=== PATIENT | female | born 1935 | race Caucasian/White ===

== ENCOUNTER 2017-03-04 08:53 | Inpatient (IN) | payer MEDICARE, OTHER, MEDICAID ==
--- NOTE | 2017-03-04 10:14 | RAD ---
CHEST ONE VIEW: History: Chest pain. Weakness. Comparison: 06-14-16 FINDINGS: Cardiac silhouette is magnified by projection. Right hemidiaphragm remains elevated. Pulmonary vascu lature is unremarkable. Patient is rotated rightward. There is no lobar consolidation or evidence of pneumothorax. human resources designate leads overlie the chest. IMPRESSION: 1. Chronic type findings are stable. No active cardiopulmonary abnormalities are demonstrated. POS: [facility]
[2017-03-04 10:36] LABS: #Basophils 0.1 thou/uL (0.0-0.2); #Eosinphils 0.2 thou/uL (0.0-0.7); #Lymphocytes 1.6 thou/uL (1.20-3.40); #Monocytes 1.3 thou/uL (0.11-0.59); #Neutrophils 13.3 thou/uL (1.40-6.50); %Basophils 0.8 % (0.0-1.0); %Lymphocytes 9.8 % (21.0-51.0); %Monocytes 7.7 % (0.0-10.0); Hematocrit 40.5 % (36.0-47.0); Mean Platelet Volume 5.8 fL (7.4-10.4); Red Blood Cell (RBC) Count 4.09 mill/uL (4.20-5.40); White Blood Cell (WBC) Count 16.5 thou/uL (4.8-10.8)
[2017-03-04 10:51] LABS: Lactic Acid - Sepsis 0.8 mmol/L (0.5-2.2)
[2017-03-04 10:58] LABS: ALT (SGPT) 11 U/L (8-55); AST (SGOT) 17 U/L (5-34); Alkaline Phosphatase 46 U/L (40-150); Anion Gap 12 mmol/L (10-20); BUN (Urea Nitrogen) 18 mg/dL (9.8-20.1); Bilirubin, Total 0.4 mg/dL (0.2-1.2); Calc. Creatinine Clearance 0 mL/min (70-130); Calcium 9.1 mg/dL (7.8-10.44); Carbon Dioxide 27 mmol/L (23-31); Chloride 104 mmol/L (98-107); Estimated GFR-MDRD Greater than 90; Globulin 2.7 g/dL (2.4-3.5); Protein, Total 6.6 g/dL (6.0-8.3)
[2017-03-04] MEDS ORDERED: Ondansetron HCl/PF 4 MG/2 ML Vial ONE ×2 (11:22→14:13)
[2017-03-04 11:39] LABS: Bilirubin Negative (Negative); Blood, Urine Moderate (Negative); Glucose, Urine (Dipstick) Negative (Negative); Ketone, Urine Negative (Negative); Nitrite Positive (Negative); Protein, Urine (Dipstick) 30 mg/dL (Neg-Trace)
[2017-03-04 11:41] LABS: Bacteria/HPF 4+ HPF (None Seen); Hyaline Casts/LPF 7-10 HYALINE CAST LPF (0-3 Hyaline)
[2017-03-04 11:57] LABS: Yeast-All Forms None Seen HPF (None Seen)
[2017-03-04] MEDS ORDERED: Sodium Chloride 0.9% 100 ML ONE (12:11)
[2017-03-04] MEDS ORDERED: cefTRIAXone\\ROCEPHIN 1 GM VIAL ONE (12:11)
[2017-03-04 12:14] LABS: Oxyhemoglobin 90.9 % (94.0-97.0); Sodium 140 mmol/L (135-148)
[2017-03-04 12:15] LABS: Mode RA; Modified Allen's Test POSITIVE; Vent NO
[2017-03-04] MEDS ORDERED: Milk Of Magnesia 30 ML UDCUP PO PRN (14:23)
[2017-03-04 14:38] LABS: Sodium 142 mmol/L (135-148)
[2017-03-04 14:40] LABS: Mode 2L/M NASAL CANNULA; Modified Allen's Test POSITIVE
--- NOTE | 2017-03-04 14:55 | PDOC.EVN ---
Event Note - Event Note Event Note: H&P: [id number] #Acute B/L Pyelonephritis * with associated N/V/bilateral flank pain on admission * IVFs * prn analgesics/antiemetics * urine cx * blood cxs * Levaquin * check labs in AM Hypercarbic Respiratroy Failure * Bipap * Pulm consult * ICU monitoring RA with functional Quadriplegia * consult PT/OT HTN * monitor BP and HR closely Hypothyroidism * continue replacement therapy Admit to ICU
[2017-03-04] MEDS ORDERED: Heparin 1,000 UNITS/ML VIAL ONE (15:19)
--- NOTE | 2017-03-04 20:08 | HP ---
DATE OF ADMISSION: 03/04/2017 at 2:50 p.m. CHIEF COMPLAINT: Nausea and vomiting. HISTORY OF PRESENT ILLNESS: This is a very pleasant 81-year-old female who reported that she had na usea and vomiting at home, there was no blood in the vomitus. This was associated with dysuria and bilateral flank pain. She reports that this feels very similar to prior pyelonephritis infections. She denied any subjective fevers or chills. She also denies any chest pain or shortness of breath. It was noted in the emergency room that she was somnolent, but easily arousable and therefore an ABG was done and revealed hypercarbic respiratory acidosis. PAST MEDICAL HISTORY: 1. Dysthymic disorder. 2. Rheumatoid arthritis with multiple joint deformities. 3. History of nephrolithiasis. 4. Vitamin D deficiency. 5. Hypothyroidism. 6. Hypertension. 7. Functional quadriplegia. 8. Recurrent urinary tract infections. PAST SURGICAL HISTORY: 1. Multiple joint replacements. 2. Cholecystectomy. FAMILY HISTORY: No history of pulmonary disease in the family per the patient. SOCIAL HISTORY: The patient denies any tobacco, alcohol, or illicit drug use. ALLERGIES, MEDICATIONS, LABS, AND IMAGING: Reviewed. Please refer to chart for details. PHYSICAL EXAMINATION: VITAL SIGNS: Reviewed, please refer to chart for details. GENERAL: The patient was lying comfortably in bed when I entered the room in no acute distress. Sh e was awake and alert. HEENT: Normocephalic, atraumatic. NECK: Supple, no rigidity, no masses. LYMPH NODES: No cervical or supraclavicular lymphadenopathy. CARDIOVASCULAR: S1 and S2 are audible. Regular rate and rhythm. LUNGS: Clear to auscultation bilaterally with no wheezes, rales, or rhonchi. Symmetric chest expan sophie. ABDOMEN: Soft, nontender, positive bowel sounds. No guarding, rebound, or rigidity. GENITOURINARY: Mild CVA tenderness bilaterally. No suprapubic tenderness. MUSCULOSKELETAL: No calf tenderness bilaterally. EXTREMITIES: No clubbing, cyanosis, or edema of the extremities. She does have deformed wrist and ankles due to her rheumatoid arthritis. PSYCHIATRIC: Appropriate, cooperative. NEUROLOGIC: Alert and oriented x3. Answering questions appropriately with judgment intact. SKIN: Warm and dry with moist mucous membranes. ASSESSMENT AND PLAN: This is an 81-year-old female presenting with nausea, vomiting, and bilateral flank pain. 1. Acute bilateral pyelonephritis. We will start IV Levaquin. Start p.r.n. analgesics and antieme tics. Start IV fluids. Check urine and blood cultures. Check labs in the morning. 2. Hypercarbic acidosis with acute respiratory failure. We will order BiPAP and transferred to ICU . We will consult Pulmonology. The patient does not have any infiltrate on chest x-ray and therefo re pneumonia has been ruled out. It is possible that she may have sleep apnea, but I will defer wor kup to pulmonology. Monitor pulse ox closely. Check labs in the morning. 3. Admit to ICU.
[2017-03-04] MEDS: Sodium Chloride 0.9% 1,000 ML IV SCH (21:05)
[2017-03-04] MEDS: Metoprolol Tartrate 25 MG TAB PO SCH (22:17)
[2017-03-05] MEDS: Sodium Chloride 0.9% 1,000 ML IV SCH ×2 (04:44→10:57)
[2017-03-05 04:56] LABS: #Lymphocytes 1.3 thou/uL (1.20-3.40); #Monocytes 1.1 thou/uL (0.11-0.59); #Neutrophils 10.1 thou/uL (1.40-6.50); %Basophils 0.1 % (0.0-1.0); %Eosinophils 0.4 % (0.0-10.0); %Lymphocytes 10.2 % (21.0-51.0); %Monocytes 8.4 % (0.0-10.0); Hematocrit 36.8 % (36.0-47.0); Mean Platelet Volume 6.1 fL (7.4-10.4); Red Blood Cell (RBC) Count 3.68 mill/uL (4.20-5.40); White Blood Cell (WBC) Count 12.5 thou/uL (4.8-10.8)
[2017-03-05 05:21] LABS: Anion Gap 9 mmol/L (10-20); BUN (Urea Nitrogen) 12 mg/dL (9.8-20.1); Calc. Creatinine Clearance 61 mL/min (70-130); Calcium 8.5 mg/dL (7.8-10.44); Carbon Dioxide 29 mmol/L (23-31); Chloride 105 mmol/L (98-107); Estimated GFR-MDRD Greater than 90; Magnesium 1.8 mg/dL (1.6-2.6)
[2017-03-05] MEDS ORDERED: HYDROcodone/Acetaminophen 5/325 mg Tablet PO SCH (05:30)
[2017-03-05] MEDS: Docusate 100 MG CAP PO SCH (08:45)
[2017-03-05] MEDS: predniSONE 5 MG TAB PO SCH (08:45)
[2017-03-05] MEDS: Ferrous Sulfate 325 MG TAB PO SCH (08:45)
[2017-03-05] MEDS: Metoprolol Tartrate 25 MG TAB PO SCH ×2 (08:45→20:31)
[2017-03-05] MEDS: Polyethylene Glycol 3350 17 GM Packet PO SCH (08:48)
[2017-03-05] MEDS ORDERED: ALPRAZolam 0.25 MG TAB PO SCH (10:45)
[2017-03-05] MEDS: cefTRIAXone\\ROCEPHIN 1 GM in Sodium Chloride 0.9% 100 ML IVPB SCH (10:56)
--- NOTE | 2017-03-05 13:26 | CON ---
DATE OF CONSULTATION: 03/05/2017 This is an 81-year-old female admitted yesterday afternoon with nausea and vomiting. She was also c omplaining of dysuria. She says she feels much better at this point in time. PAST MEDICAL HISTORY: 1. Remarkable for 36 years of rheumatoid arthritis. She says she has had just about every joint in her body replaced. 2. History of nephrolithiasis. 3. History of hypothyroidism. 4. History of hypertension. 5. History of recurrent urinary tract infections. 6. History of cholecystectomy. FAMILY HISTORY: Negative for lung disease at an early age. REVIEW OF SYSTEMS: Otherwise negative. She says she is feeling better. She denies joint discomfor t out of the ordinary. PHYSICAL EXAMINATION: VITAL SIGNS: Temperature 99.6, heart rate 72, respiratory rate is 18, oximetry is 100% on 2 liters, blood pressure 106/46. LUNGS: Clear. HEART: Regular rhythm. ABDOMEN: Soft. EXTREMITIES: Extremities without edema. She has severe rheumatoid deformities on all 4 extremities . She is extremely kyphoscoliotic. LABORATORY AND X-RAY FINDINGS: Chest radiograph showed no alveolar infiltrates. White count 12.5, hemoglobin 11.8, platelets 184,000. Sodium 139, potassium 3.8, chloride 105, bicarbonate 29, BUN 12, creatinine 0.56. Urine is growing E. coli. Blood cultures are negative so far. She had an January urinary tract infection with Esche richia coli, a October urinary tract infection with Escherichia coli and Proteus, an September urinary tract infection with Escherichia coli. She has had an abdomen and pelvis CT done in November at that time that showed a staghorn calculus in soraya renal collecting systems, free fluid in the pelvis, atherosclerotic vascular disease and a ureter al stent. I do not find any documentation where Urology has seen her. I do think Urology should be consulted given the frequency of her UTI and her calculi. There may not be anything to do, but I do think thi s needs to be addressed. I do not have any documentation via procedure notes of where her stent was placed. I put in a consult for Urology. She is stable to move off of the medical unit. ADDENDUM: I did find documentation that she has seen Dr. Becker in the past and had bilateral laser lithotripsy and basket extraction of stone fragments. I do believe Dr. Becker should be notified of her admission. ADDENDUM: Ms. Lea's hypoventilation is created by her severe thoracic cage abnormality broug ht on by her severe arthritis and chronically inactive state. At this time, she does not need nonin vasive ventilatory support. She is stable to move out of the intermediate care unit in my opinion.
--- NOTE | 2017-03-05 14:20 | PDOC.PN ---
- Subjective Encounter Start Date: 03/05/17 Encounter Start Time: 14:18 Subjective: feels little better. -: reports seeing urology in past & was referred to [facility] urologist -: Pt requires 9-10 surgeries & she doesn't want them says her dysuria is better.no hematuria - Objective Vital Signs & Weight: Vital Signs (12 hours) Temp Pulse Resp BP Pulse Ox 03/05/17 12:00 99.6 F 72 18 106/46 L 100 03/05/17 08:45 76 03/05/17 08:11 98.3 F 76 18 99 03/05/17 07:00 76 18 93/49 L 100 03/05/17 04:00 98.3 F 68 18 128/56 L 100 Weight Admit Weight 109 lb 4 oz Weight 109 lb 4 oz I&O: 03/04/17 03/05/17 03/06/17 06:59 06:59 06:59 Intake Total 678 Balance 678 Result Diagrams: 03/05/17 03:53 03/05/17 03:53 Additional Labs: Microbiology 03/04/17 10:46 Urine Straight Catheter Urine Culture - Preliminary Escherichia coli 03/04/17 10:13 Venous blood - Left Hand Blood Culture - Preliminary Specimen has been received and culture in progress. No Growth to date. 03/04/17 09:59 Venous blood - Right Hand Blood Culture - Preliminary Specimen has been received and culture in progress. No Growth to date. 03/04/17 09:59 Venous blood - Right Hand Blood Culture - Preliminary Coagulase Neg Staphylococcus Phys Exam - Physical Examination Constitutional: NAD HEENT: PERRLA, moist MMs, sclera anicteric, TM's clear, oral pharynx no lesions , 2+ tonsils Neck: no nodes, no JVD, supple, full ROM Respiratory: no wheezing, no rales, no rhonchi, clear to auscultation bilateral Cardiovascular: RRR, no significant murmur Gastrointestinal: soft, non-tender, no distention, positive bowel sounds Musculoskeletal: no edema, pulses present severe rheumatoid disfiguration of fingers Dx/Plan (1) SIRS (systemic inflammatory response syndrome) Code(s): R65.10 - SIRS OF NON-INFECTIOUS ORIGIN W/O ACUTE ORGAN DYSFUNCTION Status: Acute (2) UTI (urinary tract infection) Status: Acute (3) Chronic anemia Code(s): D64.9 - ANEMIA, UNSPECIFIED Status: Chronic (4) H/O rheumatoid arthritis Code(s): Z87.39 - PERSONAL HISTORY OF DISEASES OF THE MS SYS AND CONN TISS Status: Chronic (5) Staghorn calculus Code(s): N20.0 - CALCULUS OF KIDNEY Status: Chronic Comment: bilateral - Plan continue antibiotics, DVT proph w/SCDs restart Rocephin. follow urine Cx. Pt w/o any flank pain. -: given h/o Staghorn & poor f/u,will get renal US -: Pt reports that Urology has seen her in the past & she needed referral -: check for worsening /onstruction.May need urology recs again-pt reluctant -: cont home meds. Pt encouraged to see senior user experience architect. * .Stable to be transferred to medical. * Put parameters on metoprolol. Hold amlopdipine for lower BP.Cont IVF. * Respiratory status good.on Nasal canula Review of Systems - Review of Systems Constitutional: Weakness. negative: Fever, Chills, Sweats, Malaise, Other Respiratory: negative: Cough, Dry, Shortness of Breath, Hemoptysis, SOB with Excertion, Pleuritic Pain, Sputum, Wheezing Cardiovascular: negative: Chest Pain, Palpitations, Orthopnea, Paroxysmal Noc. Dyspnea, Edema, Light Headedness, Other Gastrointestinal: negative: Nausea, Vomiting, Abdominal Pain, Diarrhea, Constipation, Melena, Hematochezia, Other Genitourinary: negative: Dysuria, Frequency, Incontinence, Hematuria, Retention , Other Musculoskeletal: negative: Neck Pain, Shoulder Pain, Arm Pain, Back Pain, Hand Pain, Leg Pain, Foot Pain, Other Neurological: negative: Weakness, Numbness, Incoordination, Change in Speech, Confusion, Seizures, Other - Medications/Allergies Allergies/Adverse Reactions: Allergies Allergy/AdvReac Type Severity Reaction Status Date / Time quinine Allergy Intermediate Verified 11/16/15 09:39 shellfish derived Allergy Verified 11/17/15 05:33 Medications: Current Medications Alprazolam (Xanax) 0.25 mg PO TID [facility] Amlodipine Besylate (Norvasc) 5 mg PO DAILY [facility] Last Admin: 03/05/17 08:45 Dose: 5 mg Docusate Sodium (Colace) 100 mg PO DAILY [facility] Last Admin: 03/05/17 08:45 Dose: 100 mg Ferrous Sulfate (Feosol) 325 mg PO [facility] Last Admin: 03/05/17 08:45 Dose: 325 mg Sodium Chloride (Normal Saline 0.9%) 1,000 mls @ 75 mls/hr IV .[id number] [facility] Last Admin: 03/05/17 10:57 Dose: 1,000 mls Ceftriaxone Sodium 1 gm/ (Sodium Chloride) 100 mls @ 200 mls/hr IVPB Q24HR [facility] Last Admin: 03/05/17 10:56 Dose: 100 mls Levothyroxine Sodium (Synthroid) 50 mcg PO 0600 [facility] Magnesium Hydroxide (Milk Of Magnesium) 30 ml PO DAILY PRN PRN Reason: Constipation Metoprolol Tartrate (Lopressor) 25 mg PO BID [facility] Last Admin: 03/05/17 08:45 Dose: 25 mg Polyethylene Glycol (Miralax) 17 gm PO Q2D@0900 [facility] Last Admin: 03/05/17 08:48 Dose: 17 gm Prednisone (Prednisone) 5 mg PO [facility] Last Admin: 03/05/17 08:45 Dose: 5 mg
[2017-03-05] MEDS: ALPRAZolam 0.25 MG TAB PO SCH ×2 (15:10→20:31)
--- NOTE | 2017-03-05 16:35 | ULT ---
RENAL ULTRASOUND: 03/05/17 HISTORY: Staghorn calculus. COMPARISON: 06/19/11 ultrasound exam and a 11/15/15 CT study. Real time imaging of the right and left kidneys show normal sized kidneys. The right kidney measurin g 11.3 and left kidney approximately 10 cm in size. There is findings compatible with the staghorn t ype calculus of the left kidney. There is calcifications throughout the left renal pelvis on the rig ht side even though on the previous CT examination, there is a staghorn type calculus. This is diffi culty to definitely appreciate on this examination. The right kidney was not as well seen, particula rly the right renal pelvis region but I do not see any staghorn calculi in the region of the upper o r lower pole calyces. The bladder shows some echogenic density, some of which shows shadowing. Some of this is debris and some of this appears to represent bladder calculi. IMPRESSION: 1. Left sided staghorn calculus. 2. No evidence of obstruction of the right kidney. 3. Bladder calculi debris within the bladder. 4. Incidental note is made of small cyst involving the lower pole of the left kidney which yomaira ures in the 1 cm range and upper pole of the right kidney which measures in the 1.5 cm range. POS: [facility]
[2017-03-06] MEDS: HYDROcodone/Acetaminophen 5/325 mg Tablet PO PRN ×3 (00:41→20:08)
[2017-03-06] MEDS: Sodium Chloride 0.9% 1,000 ML IV SCH ×2 (01:01→15:34)
[2017-03-06 04:25] LABS: #Eosinphils 0.1 thou/uL (0.0-0.7); #Lymphocytes 1.7 thou/uL (1.20-3.40); %Basophils 0.3 % (0.0-1.0); %Lymphocytes 17.4 % (21.0-51.0); %Monocytes 10.5 % (0.0-10.0); Hematocrit 33.7 % (36.0-47.0); Mean Platelet Volume 6.2 fL (7.4-10.4); Red Blood Cell (RBC) Count 3.35 mill/uL (4.20-5.40); White Blood Cell (WBC) Count 9.9 thou/uL (4.8-10.8)
[2017-03-06 04:49] LABS: Anion Gap 9 mmol/L (10-20); BUN (Urea Nitrogen) 11 mg/dL (9.8-20.1); Calc. Creatinine Clearance 59 mL/min (70-130); Calcium 8.4 mg/dL (7.8-10.44); Carbon Dioxide 26 mmol/L (23-31); Chloride 107 mmol/L (98-107); Estimated GFR-MDRD Greater than 90
[2017-03-06] MEDS: Levothyroxine Sodium 50 MCG TAB PO SCH (06:04)
[2017-03-06] MEDS ORDERED: Ondansetron HCl/PF 4 MG/2 ML Vial IVP SCH (07:00)
[2017-03-06] MEDS: ALPRAZolam 0.25 MG TAB PO SCH ×3 (07:40→20:06)
[2017-03-06] MEDS: Ferrous Sulfate 325 MG TAB PO SCH (07:40)
[2017-03-06] MEDS: Metoprolol Tartrate 25 MG TAB PO SCH ×2 (07:40→20:06)
[2017-03-06] MEDS: predniSONE 5 MG TAB PO SCH (07:40)
[2017-03-06] MEDS: Docusate 100 MG CAP PO SCH (07:45)
[2017-03-06] MEDS: cefTRIAXone\\ROCEPHIN 1 GM in Sodium Chloride 0.9% 100 ML IVPB SCH (09:43)
--- NOTE | 2017-03-06 10:21 | CON ---
DATE OF CONSULTATION: 03/06/2017 CONSULTING PHYSICIAN: Dr. Tena. CUSTOMER MANAGER: Saad Verma M.D. REASON FOR CONSULTATION: Nephrolithiasis and recurrent urinary tract infections. HISTORY OF PRESENT ILLNESS: Ms. Lea is an 81-year-old white female with a long history of ne phrolithiasis and rheumatoid arthritis who was admitted to the hospital recently with bilateral flan k pain, dysuria, fevers, chills, hallucinations, nausea and vomiting, and she has been started on IV antibiotics and has significantly improved. Her pain has almost nearly completely dissipated at th is point and she is more stable. She had a renal ultrasound done which demonstrated a possible larg e staghorn calculus in her left kidney as well as multiple bladder calculi. I was consulted for fur ther assistance given her history of prior recurring severe urinary infections as well as nephrolith iasis. On my discussion with the patient, she previously used to see Dr. Becker about 5 years ago. At that time, she was being managed for kidney stones, but stated that she did not have any ma spencer surgeries done at that point. She did have an obstructing stone subsequently and became very il l. Shortly thereafter, at which time she went to the [facility]. She was seen by Marnie Capps, the urologist application assistant there, who placed ureteral stenting at that time. To her knowledg e, this stent has never been removed and has been in place since that time five years ago. She unde rwent a CT scan in 2016, which demonstrated severe bilateral renal staghorn calculi with a left uret eral stent within the urinary bladder extending up to the proximal ureter. There was significant am ount of calcifications surrounding the ureteral stent, indicating that this was probably the same st ent that Dr. Capps had placed back 5 years ago. Additionally, it was noted that there were multip le urinary bladder calculi. This is consistent with what had been seen on her ultrasound done recen tly on this hospitalization. Since that point, she had gone to see Dr. Silvana Morel, a kidney st one specialist at [facility] in [place]. The options for treatment were explained to Mrs. Kevin du at that time and it appeared that it would take a significant amount of surgery to remove all of the stone and remove her stent. At this point, Mrs. Lea was approximately 79 years old an d she did not wish to undergo anymore surgeries and stated that she was just going to leave the [facility] as they were. She reports having urinary tract infections approximately every 12-15 months, whic h usually is a severe infection, requiring hospitalization and IV antibiotics. She usually gets sim ilar problems and issues as this hospitalization. She states she usually will just take the antibio tics until she is better and then go back to her skilled nursing in [place] where she resides. At the current time, she denies any hematuria, significant urgency or frequency. States the dysuria has r esolved and is no longer complaining of flank pain and denies any fevers or chills, nausea or vomiti ng. ALLERGIES: 1. QUININE. 2. SHELLFISH. HOME MEDICATIONS: 1. Meloxicam. 2. Duloxetine. 3. Albuterol. 4. Xanax. 5. Carbamide peroxide. 6. Guaifenesin/pseudoephedrine. 7. Levothyroxine. 8. Multivitamin. 9. Eleva. 10. Phenergan. 11. Tylenol. 12. Colace. 13. Milk of Magnesia. 14. Metoprolol. 15. MiraLax 16. Prednisone. 17. Methotrexate. PAST MEDICAL HISTORY: 1. Dysthymic disorder. 2. Rheumatoid arthritis with joint deformities. 3. Nephrolithiasis. 4. Vitamin D deficiency. 5. Hypothyroidism. 6. Hypertension. 7. Functional quadriplegia. 8. Recurrent urinary tract infections. PAST SURGICAL HISTORY: 1. Cholecystectomy. 2. Multiple joint replacements at her elbows, fingers, toes, knees, among other locations. FAMILY HISTORY: Noncontributory for nephrolithiasis or rheumatoid arthritis. SOCIAL HISTORY: Patient denies tobacco, alcohol, or illicit drug use. She lives in a skilled nursing in [place] after she became from her . REVIEW OF SYSTEMS: A 12 point review of systems was reviewed and otherwise negative. Pertinent pos itives were noted in the HPI section. PHYSICAL EXAMINATION: CURRENT VITAL SIGNS: Temperature 99.2, pulse 93, respirations 16, blood pressure 172/81, saturation s 100% on 2 liters nasal cannula. GENERAL: Appears elderly and frail, currently lying in bed, but very communicative and alert, appea rs her stated age. HEENT: Normocephalic, atraumatic. Sclerae are nonicteric. Pupils are symmetric and round. Moist mucous membranes. Trachea midline. Nasal cannula in place. CARDIOVASCULAR: Regular rate and rhythm. Normal S1 and S2. Symmetric pulses in upper and lower ex tremities. CHEST: Clear anteriorly. Symmetric expansion of lungs, nonlabored breathing. ABDOMEN: Soft, nontender, nondistended. Positive bowel sounds. No guarding, rebound tenderness, n o hepatosplenomegaly, no obvious hernias. GENITOURINARY: No SP tenderness. External genitalia were not examined. MUSCULOSKELETAL: There are significant joint deformities in her fingers with multiple contractures and shortening of several digits. She does have limited mobility with her hands. There are also co ntractures and significant deformations of her toes. The patient has extremely limited range of mot ion and between 3/5-4/5 strength at various limbs. NEUROLOGIC: Cranial nerves II-XII grossly intact. There are no obvious focal or sensory motor defi cits identified other than the weakness noted previously. SKIN: Warm and dry, poor turgor. EXTREMITIES: No clubbing, cyanosis or edema. PSYCHIATRIC: Alert and oriented x3, appropriate and cooperative. Mentally appears very sharp with good short and long-term memory. LABORATORY DATA AND X-RAY FINDINGS: On laboratory evaluation, a full set of labs are in the [facility] system, which I have reviewed. Of note, the white count is currently 9.9, down from 16.5, hemoglo bin is 10.6 with platelet count of 146, creatinine is currently 0.58. Urinalysis demonstrates nitri te positive urine with moderate blood, greater than 50 white cells, 11-20 red cells, 4+ bacteria. U rine culture preliminary growth is E. coli with resistance to levofloxacin, ciprofloxacin, and Bactr im. Intermediate sensitivity to ampicillin, nitrofurantoin, and tobramycin. Patient is sensitive t o piperacillin, tazobactam, cefoxitin, ceftriaxone, ceftazidime, and cefepime. Renal ultrasound don e on 03/05/2017 demonstrates left-sided staghorn calculus without evidence of obstruction of the rig ht kidney, bladder calculi debris within the bladder, incidental note was made of a small cyst in th e lower pole of the left kidney which measured about a centimeter and upper pole of the right kidney measuring 1.5 cm. ASSESSMENT AND PLAN: An 81-year-old white female with retained stent with likely significant incrus tation and stone formation resulting in staghorn calculus formation in the left kidney and large lob ulated bladder calculus in the distal curl of the stent. The patient is currently asymptomatic now and apparently has been living with this for the past 5 years. I have told her that I would agree w ith Dr. Grant' assessment that she would probably need at least 4-5 surgeries to clear all of the s tone disease out, some of the surgeries possibly requiring either an open cystotomy or a percutaneou s nephrolithotomy. Given the nature of the surgeries and the aggressive approach to render her ston e free, she has elected not to pursue any surgical intervention. She states that she has made it th rough the past 5 years and states that she would rather just leave the stones and retain stent as it is. I do not think this is reasonable given how many surgeries the patient has undergone in the [facility] as well as her current age and comorbidities. She is more focused on a hospice/palliative style of approach rather than aggressive maintenance of her health. As a secondary option, I have told he r we could consider leaving her on low dose prophylactic antibiotics due to her multiple drug resist ances on her preliminary urine culture, low dose cephalosporins such as Omnicef may be reasonable at a dose of 150 mg once a day. This should allow for reasonable prevention of further urinary tract infections, although I told her this is not 100% effective and it is still possible that she may get further infections in the future. She is slightly immunocompromised from a daily methotrexate use, but she states this significantly helps her joints. Therefore, I do not think that it would be lili lly necessary to stop this medication. From my standpoint, I think we will just plan to monitor the number of her infections and consider symptomatic control only since she does not wish to have any further surgeries. A CT scan is probably also not necessary given that further imaging and delineat ion of her stone disease is not necessary given that she does not wish to have any surgical approach es. SUMMARY OF RECOMMENDATIONS: 1. No further action is necessary at this time from a urologic standpoint. 2. Would recommend continuation of treatment of her complex urinary tract infection with IV antibio tics for preferably about 2 weeks. If necessary, Infectious Disease may be consulted for further as sisritikace. 3. Once she has completed her therapeutic antibiotic regimen, I would recommend leaving her on low dose Omnicef 150 mg p.o. daily. 4. We will schedule her to follow up to come back and see me in approximately 3 months to see how s he is doing.
--- NOTE | 2017-03-06 11:47 | PDOC.PN ---
- Subjective Encounter Start Date: 03/06/17 Encounter Start Time: 11:46 Subjective: feels much better. -: no dysuria/hematuria/fever/chills/flank pain - Objective MAR Reviewed: Yes Vital Signs & Weight: Vital Signs (12 hours) Temp Pulse Resp BP Pulse Ox 03/06/17 08:00 99.2 F 93 16 100 03/06/17 07:29 99.2 F 93 16 172/81 H 100 03/06/17 03:00 98.8 F 67 18 123/47 L 100 03/06/17 01:00 98.9 F 68 18 105/57 L 100 03/06/17 00:58 100 Weight Admit Weight 109 lb 4 oz Weight 120 lb 11.2 oz I&O: 03/05/17 03/06/17 03/07/17 06:59 06:59 06:59 Intake Total 678 1810 Balance 678 1810 Result Diagrams: 03/06/17 04:00 03/06/17 04:00 Additional Labs: Microbiology 03/04/17 10:46 Urine Straight Catheter Urine Culture - Final Escherichia coli 03/04/17 10:13 Venous blood - Left Hand Blood Culture - Preliminary Specimen has been received and culture in progress. No Growth to date. 03/04/17 09:59 Venous blood - Right Hand Blood Culture - Preliminary Coagulase Neg Staphylococcus Radiology Reviewed by me: Yes (Renal US- Left staghorn calculus w bladder claculi.no hydronephrosis) Phys Exam - Physical Examination Constitutional: NAD HEENT: PERRLA, moist MMs, sclera anicteric, oral pharynx no lesions Neck: no nodes, no JVD, supple, full ROM Respiratory: no wheezing, no rales, no rhonchi, clear to auscultation bilateral Cardiovascular: RRR, no significant murmur, no rub, gallop Gastrointestinal: soft, non-tender, no distention, positive bowel sounds Musculoskeletal: no edema, pulses present severe rheumatiod deformity of hands,spine ,joints Neurological: non-focal, normal sensation, moves all 4 limbs Psychiatric: normal affect, A&O x 3 Skin: no rash Dx/Plan (1) SIRS (systemic inflammatory response syndrome) Code(s): R65.10 - SIRS OF NON-INFECTIOUS ORIGIN W/O ACUTE ORGAN DYSFUNCTION Status: Acute (2) UTI (urinary tract infection) Status: Acute (3) Chronic anemia Code(s): D64.9 - ANEMIA, UNSPECIFIED Status: Chronic (4) H/O rheumatoid arthritis Code(s): Z87.39 - PERSONAL HISTORY OF DISEASES OF THE MS SYS AND CONN TISS Status: Chronic (5) Staghorn calculus Code(s): N20.0 - CALCULUS OF KIDNEY Status: Chronic Comment: bilateral - Plan continue antibiotics, out of bed/ambulate, DVT proph w/SCDs discussed halfway plan again w Pt in detail.she does not want surgeries -: appreciate Urology input. Suppressive ABx in halfway. -: will consult ID for now for need of IV Abx for 2 weeks for complicated UTI -: hemodynamically stable.Transfer to medical if bed avilable. -: HH on DC.am labs * . Review of Systems - Review of Systems Constitutional: negative: Fever, Chills, Sweats, Weakness, Malaise, Other ENT: negative: Ear Pain, Ear Discharge, Nose Pain, Nose Discharge, Nose Congestion, Mouth Pain, Mouth Swelling, Throat Pain, Throat Swelling, Other Respiratory: negative: Cough, Dry, Shortness of Breath, Hemoptysis, SOB with Excertion, Pleuritic Pain, Sputum, Wheezing Cardiovascular: negative: Chest Pain, Palpitations, Orthopnea, Paroxysmal Noc. Dyspnea, Edema, Light Headedness, Other Gastrointestinal: negative: Nausea, Vomiting, Abdominal Pain, Diarrhea, Constipation, Melena, Hematochezia, Other Genitourinary: negative: Dysuria, Frequency, Incontinence, Hematuria, Retention , Other Musculoskeletal: negative: Neck Pain, Shoulder Pain, Arm Pain, Back Pain, Hand Pain, Leg Pain, Foot Pain, Other Neurological: negative: Weakness, Numbness, Incoordination, Change in Speech, Confusion, Seizures, Other - Medications/Allergies Allergies/Adverse Reactions: Allergies Allergy/AdvReac Type Severity Reaction Status Date / Time quinine Allergy Intermediate Verified 11/16/15 09:39 shellfish derived Allergy Verified 11/17/15 05:33 Medications: Current Medications Hydrocodone Bitart/Acetaminophen ([place] 5/325) 1 tab PO Q6H PRN PRN Reason: Moderate Pain (4-6) Last Admin: 03/06/17 07:55 Dose: 1 tab Alprazolam (Xanax) 0.25 mg PO TID [facility] Last Admin: 03/06/17 07:40 Dose: 0.25 mg Docusate Sodium (Colace) 100 mg PO DAILY [facility] Last Admin: 03/06/17 07:45 Dose: Not Given Duloxetine HCl (Cymbalta) 60 mg PO HS [facility] Ferrous Sulfate (Feosol) 325 mg PO QA-[facility] Last Admin: 03/06/17 07:40 Dose: 325 mg Sodium Chloride (Normal Saline 0.9%) 1,000 mls @ 75 mls/hr IV .[id number] [facility] Last Admin: 03/06/17 01:01 Dose: 1,000 mls Ceftriaxone Sodium 1 gm/ (Sodium Chloride) 100 mls @ 200 mls/hr IVPB Q24HR [facility] Last Admin: 03/06/17 09:43 Dose: 100 mls Iron/Minerals/Multivitamins (Theragran M) 1 tab PO DAILY [facility] Levothyroxine Sodium (Synthroid) 50 mcg PO 0600 [facility] Last Admin: 03/06/17 06:04 Dose: 50 mcg Magnesium Hydroxide (Milk Of Magnesium) 30 ml PO DAILY PRN PRN Reason: Constipation Metoprolol Tartrate (Lopressor) 25 mg PO BID [facility] Last Admin: 03/06/17 07:40 Dose: 25 mg Polyethylene Glycol (Miralax) 17 gm PO Q2D@0900 [facility] Last Admin: 03/05/17 08:48 Dose: 17 gm Prednisone (Prednisone) 5 mg PO QAM-[facility] Last Admin: 03/06/17 07:40 Dose: 5 mg
--- NOTE | 2017-03-06 21:37 | PRG ---
DATE OF SERVICE: 03/06/2017 SUBJECTIVE: Ms. Emy Lea did well overnight. She has no new complaints. She was seen by Urology who has no recommendations for any further workup. Infectious Disease has been consulted fo r recommendations regarding antibiotic suppression since she has had an E. coli infection in 03/04, 11/05, 10/04, 05/04 and 03/29. 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 She remains frail. She is adequately ventilating. She is not having issues of secretions. OBJECTIVE: LUNGS: Clear. HEART: Regular rhythm. ABDOMEN: Soft. VITAL SIGNS: She is afebrile, blood pressures in the 90s, heart rate 78, respiratory rate is 12, ox imetry is 100% on 2 liters. We discussed mechanical ventilation and end of life issues. She never wanted to be intubated. I would agree with this decision. She is willing to sign an out of hospital DNR. The order will be entered. We will continue to take care of her short of heroic measures and hopefu lly get her back to her living environment soon.
[2017-03-07] MEDS: Sodium Chloride 0.9% 1,000 ML IV SCH ×2 (04:18→18:39)
[2017-03-07] MEDS: HYDROcodone/Acetaminophen 5/325 mg Tablet PO PRN ×3 (04:18→20:25)
[2017-03-07] MEDS: Levothyroxine Sodium 50 MCG TAB PO SCH (04:18)
[2017-03-07 04:38] LABS: #Eosinphils 0.2 thou/uL (0.0-0.7); #Lymphocytes 1.7 thou/uL (1.20-3.40); #Monocytes 0.9 thou/uL (0.11-0.59); #Neutrophils 4.4 thou/uL (1.40-6.50); %Basophils 0.6 % (0.0-1.0); %Eosinophils 2.7 % (0.0-10.0); %Lymphocytes 23.1 % (21.0-51.0); %Monocytes 12.7 % (0.0-10.0); Hematocrit 33.2 % (36.0-47.0); Mean Platelet Volume 6.5 fL (7.4-10.4); Red Blood Cell (RBC) Count 3.29 mill/uL (4.20-5.40); White Blood Cell (WBC) Count 7.2 thou/uL (4.8-10.8)
[2017-03-07 05:01] LABS: Anion Gap 12 mmol/L (10-20); BUN (Urea Nitrogen) 9 mg/dL (9.8-20.1); Calc. Creatinine Clearance 72 mL/min (70-130); Calcium 8.7 mg/dL (7.8-10.44); Carbon Dioxide 24 mmol/L (23-31); Chloride 109 mmol/L (98-107); Estimated GFR-MDRD Greater than 90
[2017-03-07] MEDS: Docusate 100 MG CAP PO SCH (07:27)
[2017-03-07] MEDS: Multivitamin W/ Minerals 1 TAB PO SCH (07:27)
[2017-03-07] MEDS: Ferrous Sulfate 325 MG TAB PO SCH (07:27)
[2017-03-07] MEDS: predniSONE 5 MG TAB PO SCH (07:27)
[2017-03-07] MEDS: Metoprolol Tartrate 25 MG TAB PO SCH ×2 (07:28→20:23)
[2017-03-07] MEDS: ALPRAZolam 0.25 MG TAB PO SCH ×3 (07:28→20:22)
[2017-03-07] MEDS: Polyethylene Glycol 3350 17 GM Packet PO SCH (07:28)
[2017-03-07] MEDS ORDERED: Non-Formulary Item 1 EACH (Multivit With Calcium,Iron,Min [Multiple Vitamins For Women] 1 PO SCH (09:00)
[2017-03-07] MEDS: cefTRIAXone\\ROCEPHIN 1 GM in Sodium Chloride 0.9% 100 ML IVPB SCH (09:15)
[2017-03-07 11:20] VITALS: BMI 20.7
--- NOTE | 2017-03-07 15:17 | PDOC.PN ---
- Subjective Encounter Start Date: 03/07/17 Encounter Start Time: 10:30 Subjective: no sob, feels better - Objective Resuscitation Status: Resuscitation Status DNR:Do Not Resuscitate MAR Reviewed: Yes Vital Signs & Weight: Vital Signs (12 hours) Temp Pulse Resp BP Pulse Ox 03/07/17 08:00 98.9 F 74 18 130/70 99 03/07/17 04:57 98.1 F 104 H 18 148/71 H 96 Weight Admit Weight 109 lb 4 oz Weight 120 lb 11.214 oz I&O: 03/06/17 03/07/17 03/08/17 06:59 06:59 06:59 Intake Total 1810 900 Balance 1810 900 Result Diagrams: 03/07/17 03:41 03/07/17 03:41 Phys Exam - Physical Examination HEENT: PERRLA, moist MMs Neck: no JVD, supple Respiratory: no wheezing, no rales Cardiovascular: RRR, no significant murmur Gastrointestinal: soft, non-tender, positive bowel sounds Musculoskeletal: no edema, pulses present has severe deformities from RA Neurological: non-focal, moves all 4 limbs Psychiatric: A&O x 3 Dx/Plan (1) Sepsis Code(s): A41.9 - SEPSIS, UNSPECIFIED ORGANISM Status: Acute Qualifiers: Sepsis type: Escherichia coli Qualified Code(s): A41.51 - Sepsis due to Escherichia coli [E. coli] (2) UTI (urinary tract infection) Status: Acute Qualifiers: Urinary tract infection type: acute cystitis (3) Chronic anemia Code(s): D64.9 - ANEMIA, UNSPECIFIED Status: Chronic (4) H/O rheumatoid arthritis Code(s): Z87.39 - PERSONAL HISTORY OF DISEASES OF THE MS SYS AND CONN TISS Status: Chronic (5) Staghorn calculus Code(s): N20.0 - CALCULUS OF KIDNEY Status: Chronic Comment: bilateral - Plan is on ceftriaxone -: oral prednisone for RA -: has chronic inoperable nephrolithiasis with prior stent on one side -: outpt antibiotics per advice -: will likely need picc line, await advice * . Review of Systems - Medications/Allergies Allergies/Adverse Reactions: Allergies Allergy/AdvReac Type Severity Reaction Status Date / Time quinine Allergy Intermediate Verified 06/09/16 09:39 shellfish derived Allergy Verified 11/17/15 05:33 Medications: Current Medications Hydrocodone Bitart/Acetaminophen ([place] 5/325) 1 tab PO Q6H PRN PRN Reason: Moderate Pain (4-6) Last Admin: 03/07/17 13:09 Dose: 1 tab Alprazolam (Xanax) 0.25 mg PO TID [facility] Last Admin: 03/07/17 07:28 Dose: 0.25 mg Docusate Sodium (Colace) 100 mg PO DAILY [facility] Last Admin: 03/07/17 07:27 Dose: 100 mg Duloxetine HCl (Cymbalta) 60 mg PO HS [facility] Last Admin: 03/06/17 20:06 Dose: Not Given Ferrous Sulfate (Feosol) 325 mg PO QAM-WM [facility] Last Admin: 03/07/17 07:27 Dose: 325 mg Sodium Chloride (Normal Saline 0.9%) 1,000 mls @ 75 mls/hr IV .[id number] [facility] Last Admin: 03/07/17 04:18 Dose: 1,000 mls Ceftriaxone Sodium 1 gm/ (Sodium Chloride) 100 mls @ 200 mls/hr IVPB Q24HR [facility] Last Admin: 03/07/17 09:15 Dose: 100 mls Iron/Minerals/Multivitamins (Theragran M) 1 tab PO DAILY [facility] Last Admin: 03/07/17 07:27 Dose: 1 tab Levothyroxine Sodium (Synthroid) 50 mcg PO 0600 [facility] Last Admin: 03/07/17 04:18 Dose: 50 mcg Magnesium Hydroxide (Milk Of Magnesium) 30 ml PO DAILY PRN PRN Reason: Constipation Metoprolol Tartrate (Lopressor) 25 mg PO BID [facility] Last Admin: 03/07/17 07:28 Dose: 25 mg Polyethylene Glycol (Miralax) 17 gm PO Q2D@0900 [facility] Last Admin: 03/07/17 07:28 Dose: Not Given Prednisone (Prednisone) 5 mg PO QAM-WM [facility] Last Admin: 03/07/17 07:27 Dose: 5 mg
[2017-03-08] MEDS: HYDROcodone/Acetaminophen 5/325 mg Tablet PO PRN ×2 (02:57→13:22)
[2017-03-08] MEDS: Levothyroxine Sodium 50 MCG TAB PO SCH (05:09)
[2017-03-08 05:10] LABS: #Eosinphils 0.2 thou/uL (0.0-0.7); #Lymphocytes 1.3 thou/uL (1.20-3.40); %Basophils 0.4 % (0.0-1.0); %Eosinophils 2.5 % (0.0-10.0); %Lymphocytes 13.5 % (21.0-51.0); %Monocytes 10.1 % (0.0-10.0); Mean Platelet Volume 6.6 fL (7.4-10.4); White Blood Cell (WBC) Count 9.5 thou/uL (4.8-10.8)
[2017-03-08 05:31] LABS: Anion Gap 7 mmol/L (10-20); BUN (Urea Nitrogen) 7 mg/dL (9.8-20.1); Calc. Creatinine Clearance 80 mL/min (70-130); Calcium 8.4 mg/dL (7.8-10.44); Carbon Dioxide 30 mmol/L (23-31); Chloride 107 mmol/L (98-107); Estimated GFR-MDRD Greater than 90
[2017-03-08] MEDS: Docusate 100 MG CAP PO SCH (07:51)
[2017-03-08] MEDS: predniSONE 5 MG TAB PO SCH (07:51)
[2017-03-08] MEDS: Metoprolol Tartrate 25 MG TAB PO SCH ×2 (07:51→20:27)
[2017-03-08] MEDS: ALPRAZolam 0.25 MG TAB PO SCH ×3 (07:51→20:27)
[2017-03-08] MEDS: Multivitamin W/ Minerals 1 TAB PO SCH (07:51)
[2017-03-08] MEDS: Ferrous Sulfate 325 MG TAB PO SCH (07:51)
[2017-03-08] MEDS: Sodium Chloride 0.9% 1,000 ML IV SCH (07:52)
[2017-03-08] MEDS: cefTRIAXone\\ROCEPHIN 1 GM in Sodium Chloride 0.9% 100 ML IVPB SCH (09:16)
--- NOTE | 2017-03-08 11:10 | PDOC.PN ---
- Subjective Encounter Start Date: 03/08/17 Encounter Start Time: 08:20 Subjective: had some chills last night -: thinks its her anxiety -: no fever - Objective Resuscitation Status: Resuscitation Status DNR:Do Not Resuscitate MAR Reviewed: Yes Vital Signs & Weight: Vital Signs (12 hours) Temp Pulse Resp BP Pulse Ox 03/08/17 08:00 98.7 F 81 18 03/08/17 07:35 98.7 F 81 18 152/75 H 97 Weight Admit Weight 109 lb 4 oz Weight 120 lb 11.214 oz I&O: 03/07/17 03/08/17 03/09/17 06:59 06:59 06:59 Intake Total 900 1620 Balance 900 1620 Result Diagrams: 03/08/17 04:17 03/08/17 04:17 Phys Exam - Physical Examination HEENT: PERRLA, moist MMs Neck: no JVD, supple Respiratory: no wheezing, no rales Cardiovascular: RRR, no significant murmur Gastrointestinal: soft, non-tender, positive bowel sounds Musculoskeletal: no edema, pulses present Neurological: non-focal, moves all 4 limbs Psychiatric: A&O x 3 Dx/Plan (1) Sepsis Code(s): A41.9 - SEPSIS, UNSPECIFIED ORGANISM Status: Acute Qualifiers: Sepsis type: Escherichia coli Qualified Code(s): A41.51 - Sepsis due to Escherichia coli [E. coli] (2) UTI (urinary tract infection) Status: Acute Qualifiers: Urinary tract infection type: acute cystitis (3) Chronic anemia Code(s): D64.9 - ANEMIA, UNSPECIFIED Status: Chronic (4) H/O rheumatoid arthritis Code(s): Z87.39 - PERSONAL HISTORY OF DISEASES OF THE MS SYS AND CONN TISS Status: Chronic (5) Staghorn calculus Code(s): N20.0 - CALCULUS OF KIDNEY Status: Chronic Comment: bilateral - Plan is on ceftriaxone, dc iv fluids, replace K -: no intervention for large stones, requires staged procedure, pt not interes -: -lillie in pursuing at tertiary facility -: will likely require picc line, await opinion -: dc plan is to snf when antibiotics are chosen * . Review of Systems - Medications/Allergies Allergies/Adverse Reactions: Allergies Allergy/AdvReac Type Severity Reaction Status Date / Time quinine Allergy Intermediate Verified 11/16/15 09:39 shellfish derived Allergy Verified 11/17/15 05:33 Medications: Current Medications Hydrocodone Bitart/Acetaminophen ([place] 5/325) 1 tab PO Q6H PRN PRN Reason: Moderate Pain (4-6) Last Admin: 03/08/17 02:57 Dose: 1 tab Alprazolam (Xanax) 0.25 mg PO TID [facility] Last Admin: 03/08/17 07:51 Dose: 0.25 mg Docusate Sodium (Colace) 100 mg PO DAILY [facility] Last Admin: 03/08/17 07:51 Dose: 100 mg Duloxetine HCl (Cymbalta) 60 mg PO HS [facility] Last Admin: 03/07/17 20:23 Dose: Not Given Ferrous Sulfate (Feosol) 325 mg PO QA-[facility] Last Admin: 03/08/17 07:51 Dose: 325 mg Ceftriaxone Sodium 1 gm/ (Sodium Chloride) 100 mls @ 200 mls/hr IVPB Q24HR [facility] Last Admin: 03/08/17 09:16 Dose: 100 mls Iron/Minerals/Multivitamins (Theragran M) 1 tab PO DAILY [facility] Last Admin: 03/08/17 07:51 Dose: 1 tab Levothyroxine Sodium (Synthroid) 50 mcg PO 0600 [facility] Last Admin: 03/08/17 05:09 Dose: 50 mcg Magnesium Hydroxide (Milk Of Magnesium) 30 ml PO DAILY PRN PRN Reason: Constipation Metoprolol Tartrate (Lopressor) 25 mg PO BID [facility] Last Admin: 03/08/17 07:51 Dose: 25 mg Polyethylene Glycol (Miralax) 17 gm PO Q2D@0900 [facility] Last Admin: 03/07/17 07:28 Dose: Not Given Potassium Chloride (K-Dur) 40 meq PO ONE [facility] Prednisone (Prednisone) 5 mg PO QAM-[facility] Last Admin: 03/08/17 07:51 Dose: 5 mg
[2017-03-08] MEDS ORDERED: Potassium Chloride 20 MEQ TAB PO SCH (11:15)
[2017-03-09 05:18] LABS: #Eosinphils 0.3 thou/uL (0.0-0.7); #Lymphocytes 1.9 thou/uL (1.20-3.40); #Monocytes 0.8 thou/uL (0.11-0.59); #Neutrophils 5.4 thou/uL (1.40-6.50); %Basophils 0.6 % (0.0-1.0); %Eosinophils 3.8 % (0.0-10.0); %Lymphocytes 22.7 % (21.0-51.0); %Monocytes 8.9 % (0.0-10.0); Hematocrit 35.5 % (36.0-47.0); Mean Platelet Volume 6.5 fL (7.4-10.4); Red Blood Cell (RBC) Count 3.59 mill/uL (4.20-5.40); White Blood Cell (WBC) Count 8.5 thou/uL (4.8-10.8)
[2017-03-09 05:57] LABS: Anion Gap 10 mmol/L (10-20); BUN (Urea Nitrogen) 6 mg/dL (9.8-20.1); Calc. Creatinine Clearance 74 mL/min (70-130); Calcium 9.3 mg/dL (7.8-10.44); Carbon Dioxide 33 mmol/L (23-31); Chloride 103 mmol/L (98-107); Estimated GFR-MDRD Greater than 90
[2017-03-09] MEDS: Levothyroxine Sodium 50 MCG TAB PO SCH (06:11)
[2017-03-09] MEDS: HYDROcodone/Acetaminophen 5/325 mg Tablet PO PRN ×2 (07:55→20:22)
[2017-03-09] MEDS: Ferrous Sulfate 325 MG TAB PO SCH (07:56)
[2017-03-09] MEDS: Docusate 100 MG CAP PO SCH (07:56)
[2017-03-09] MEDS: Metoprolol Tartrate 25 MG TAB PO SCH ×2 (07:56→20:16)
[2017-03-09] MEDS: Multivitamin W/ Minerals 1 TAB PO SCH (07:56)
[2017-03-09] MEDS: ALPRAZolam 0.25 MG TAB PO SCH ×3 (07:57→20:16)
[2017-03-09] MEDS: Polyethylene Glycol 3350 17 GM Packet PO SCH (07:57)
[2017-03-09] MEDS: predniSONE 5 MG TAB PO SCH (07:57)
[2017-03-09] MEDS: cefTRIAXone\\ROCEPHIN 1 GM in Sodium Chloride 0.9% 100 ML IVPB SCH (09:27)
--- NOTE | 2017-03-09 14:11 | PDOC.PN ---
- Subjective Encounter Start Date: 03/09/17 Encounter Start Time: 09:30 -: old records requested/rev Patient seen and examined. No new complaints. No overnight events - Objective Resuscitation Status: Resuscitation Status DNR:Do Not Resuscitate MAR Reviewed: Yes Vital Signs & Weight: Vital Signs (12 hours) Temp Pulse Resp BP Pulse Ox 03/09/17 08:00 98.6 F 87 18 96 03/09/17 07:35 98.6 F 87 18 160/77 H 95 Weight Admit Weight 109 lb 4 oz Weight 120 lb 11.214 oz I&O: 03/08/17 03/09/17 03/10/17 06:59 06:59 06:59 Intake Total 1620 360 480 Balance 1620 360 480 Result Diagrams: 03/09/17 04:08 03/09/17 04:08 Phys Exam - Physical Examination Constitutional: NAD HEENT: PERRLA, moist MMs, sclera anicteric Neck: no JVD, supple Respiratory: no wheezing, no rales, no rhonchi Cardiovascular: RRR, no significant murmur, no rub Gastrointestinal: soft, non-tender, no distention, positive bowel sounds Musculoskeletal: no edema, pulses present Neurological: non-focal, normal sensation Lymphatic: no nodes Psychiatric: normal affect, A&O x 3 Skin: no rash, normal turgor Dx/Plan (1) SIRS (systemic inflammatory response syndrome) Code(s): R65.10 - SIRS OF NON-INFECTIOUS ORIGIN W/O ACUTE ORGAN DYSFUNCTION Status: Acute (2) Sepsis Code(s): A41.9 - SEPSIS, UNSPECIFIED ORGANISM Status: Acute Qualifiers: Sepsis type: Escherichia coli Qualified Code(s): A41.51 - Sepsis due to Escherichia coli [E. coli] (3) UTI (urinary tract infection) Status: Acute Qualifiers: Urinary tract infection type: acute cystitis (4) Chronic anemia Code(s): D64.9 - ANEMIA, UNSPECIFIED Status: Chronic (5) H/O rheumatoid arthritis Code(s): Z87.39 - PERSONAL HISTORY OF DISEASES OF THE MS SYS AND CONN TISS Status: Chronic (6) Staghorn calculus Code(s): N20.0 - CALCULUS OF KIDNEY Status: Chronic Comment: bilateral - Plan cont current plan of care, continue antibiotics, PT/OT, [employer] * continue rocephin * on discharge will change to ceftin * await snu placement * medication reviewed as below * symptomatic treatment. Review of Systems - Review of Systems ENT: negative: Ear Pain, Ear Discharge, Nose Pain, Nose Discharge, Nose Congestion, Mouth Pain, Mouth Swelling, Throat Pain, Throat Swelling, Other Respiratory: negative: Cough, Dry, Shortness of Breath, Hemoptysis, SOB with Excertion, Pleuritic Pain, Sputum, Wheezing Cardiovascular: negative: Chest Pain, Palpitations, Orthopnea, Paroxysmal Noc. Dyspnea, Edema, Light Headedness, Other Gastrointestinal: negative: Nausea, Vomiting, Abdominal Pain, Diarrhea, Constipation, Melena, Hematochezia, Other Genitourinary: negative: Dysuria, Frequency, Incontinence, Hematuria, Retention , Other Musculoskeletal: negative: Neck Pain, Shoulder Pain, Arm Pain, Back Pain, Hand Pain, Leg Pain, Foot Pain, Other - Medications/Allergies Allergies/Adverse Reactions: Allergies Allergy/AdvReac Type Severity Reaction Status Date / Time quinine Allergy Intermediate Verified 11/16/15 09:39 shellfish derived Allergy Verified 11/17/15 05:33 Medications: Current Medications Hydrocodone Bitart/Acetaminophen ([place] 5/325) 1 tab PO Q6H PRN PRN Reason: Moderate Pain (4-6) Last Admin: 03/09/17 07:55 Dose: 1 tab Alprazolam (Xanax) 0.25 mg PO TID [facility] Last Admin: 03/09/17 07:57 Dose: 0.25 mg Docusate Sodium (Colace) 100 mg PO DAILY [facility] Last Admin: 03/09/17 07:56 Dose: 100 mg Duloxetine HCl (Cymbalta) 60 mg PO HS [facility] Last Admin: 03/08/17 20:23 Dose: Not Given Ferrous Sulfate (Feosol) 325 mg PO QAM-WM [facility] Last Admin: 03/09/17 07:56 Dose: 325 mg Ceftriaxone Sodium 1 gm/ (Sodium Chloride) 100 mls @ 200 mls/hr IVPB Q24HR [facility] Last Admin: 03/09/17 09:27 Dose: 100 mls Iron/Minerals/Multivitamins (Theragran M) 1 tab PO DAILY [facility] Last Admin: 03/09/17 07:56 Dose: 1 tab Levothyroxine Sodium (Synthroid) 50 mcg PO 0600 [facility] Last Admin: 03/09/17 06:11 Dose: 50 mcg Magnesium Hydroxide (Milk Of Magnesium) 30 ml PO DAILY PRN PRN Reason: Constipation Metoprolol Tartrate (Lopressor) 25 mg PO BID [facility] Last Admin: 03/09/17 07:56 Dose: 25 mg Polyethylene Glycol (Miralax) 17 gm PO Q2D@0900 [facility] Last Admin: 03/09/17 07:57 Dose: 17 gm Prednisone (Prednisone) 5 mg PO QAM-WM [facility] Last Admin: 03/09/17 07:57 Dose: 5 mg
--- NOTE | 2017-03-09 17:20 | CT ---
CT ABDOMEN NONCONTRAST CT PELVIS NONCONTRAST: (urolithiasis protocol) DATE: 03/09/17 TIME: 1526 HOURS HISTORY: 81-year-old female follow-up staghorn renal calculi and ureteral stent. COMPARISON: 11/15/15. TECHNIQUE: IV injection of iodinated contrast media: none Oral contrast media: none FINDINGS: Other than for urolithiasis, the lack of IV and oral contrast limits the evaluation. There is a new small right pleural effusion. Again noted is the extensive, severe calcification thro ughout the right renal pelvis, and in the upper and mid pole calices, without hydronephrosis. There are similar changes, but more severe throughout the left renal collecting system, with the calcifica tions distending the left renal collecting system. The left hydroureteronephrosis demonstrated previ ously has improved, and is now mild. Again noted is the left ureteral stent with upper portion in th e left proximal ureter, not within the renal pelvis. Again noted are the extensive calcifications al matt the left ureteral stent and left ureter. Again demonstrated are the several bladder calculi. The y are distributed differently on the current CT compared to the prior. They also appear to be fewer in number than before. Regarding the bilateral severe renal calculi, although many of the areas on t he left are consistent with large staghorn calculi, the ones on the right appear to be accumulation of an extremely large number of small and moderate size calculi filling the renal collecting system, which gives the appearance of staghorn calculus. The same is true of some of the calcifications in the left renal collecting system. No small bowel dilation. Bilateral total hip replacement arthroplasty hardware causes severe streak artifact, obscuring large portions of the pelvis. No hepatosplenomegaly. Pancreas poorly visualized. No adrenal mass. No abdominal aortic aneurysm. No signs of acute colonic diverticulitis. Diffuse, s evere osteopenia. IMPRESSION: 1. Severe bilateral nephrolithiasis, left worse than right, with the appearance of bilateral stagho rn calculi. There is true staghorn calculus on the left, but all of the right, and some of the left calculi consist of innumerable small discrete calculi, not fused with each other. These have not sig nificantly changed. 2. Calcified left ureteral stent with upper curl in proximal left ureter (not in renal pelvis), unc hanged. 3. The left hydroureteronephrosis demonstrated previously has improved, and is now mild. 4. Several bladder calculi. They may have decreased in number since 11/15/15, but that is uncertain . 5. New small right pleural effusion. 6. Severe osteopenia. SCOT Barrios POS: JARED
--- NOTE | 2017-03-09 19:47 | CON ---
DATE OF CONSULTATION: 03/09/2017 REASON FOR CONSULTATION: Urinary tract infection. 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 Becker as well as bilateral laser lithotripsy and extraction of stones fragments in the past. In 2011, she had a fairly sensitive E. coli strain. She had been seen by another urologist at [facility] and had another stent placed and then was advised to go to [facility] for further lithotripsy, but decided against that option and then on November 2015, she was admitted with another urinary tract infection and she was treated with another course of antimicrobial therapy. The organism in 2016 was E. coli, which was resistant to quinolones, susceptible to third generation cephalosporins amikacin, Zosyn and meropenem as well as nitrofurantoin. She was evaluated by Dr. Verma at this time when she was admitted with recurrence of nausea, vomiting and urinary tract infection symptoms, particularly dysuria. He did not recommend any further urologic intervention and currently Ms. Lea is feeling better. She denies any recurrence of vomiting or nausea, no chest pain, no abdominal pain. Dysuria has resolved. She is voiding spontaneously. 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 FAMILY HISTORY: Hypertension, hypothyroidism and cholecystectomy. SOCIAL HISTORY: Currently, [facility] resident. Never a smoker. ALLERGIES: None. CURRENT MEDICATIONS: Xanax, Rocephin, Cymbalta, Theragran, Synthroid, Lopressor and prednisone low dose. PHYSICAL EXAMINATION: GENERAL: Awake and alert, in no distress. VITAL SIGNS: Patient has a T-max of 100, currently afebrile, BP 160/77, pulse 87, respirations 18 and O2 sat 96% on 2 liters nasal cannula. SKIN: With no areas of skin breakdown. Peripheral IV access. No Wiggins catheter. No lymphadenopathy. HEENT: Ocular movements are conjugate. Oral cavity is moist, with no lesions. NECK: Supple. LUNGS: With symmetric clear breath sounds. HEART: S1 and S2 with regular rate. ABDOMEN: Soft, not tender and not distended. No bladder distention. Perineal examination normal. EXTREMITIES: Deformities in multiple joints. No other joint inflammatory activity noted. She does have multiple areas of ankylosis and subluxation on multiple hand and feet joints. Pulses are 1+ in dorsalis pedis. She has diffuse weakness and atrophy of muscles. LABORATORY AND IMAGING DATA: Urinalysis greater than 50 wbc's. White cell count is down from 16-8.5, hemoglobin 11 and platelets 160. Sodium 142, creatinine 0.51. Microbiology with an E. coli with a very similar susceptibility profile as the previous E. coli except for nitrofurantoin. Renal ultrasound from this admission with left-sided staghorn calculus, bladder calculi debris and small cyst lower pole of left kidney. No obstruction of the right kidney. Previous abdomen and pelvis CT from November of last year with severe bilateral renal staghorn calculus and left ureteral stent. It looks like this stent has been removed, but I am not clear about that according to the latest ultrasound. ASSESSMENT: 1. Severe rheumatoid arthritis with ankylosis. 2. Chronic refractory staghorn calculi with prior stent placement and now with recurrent urinary tract infection likely pyelonephritis. DISCUSSION: We will order a CT stone protocol and continue Rocephin. PICC line placement. Treat for 4 weeks and then convert to oral suppression. If the stent is still in place, then I would discontinue antimicrobials and then if it is not anymore, then consider supression with cefpodoxime. MTDD
[2017-03-09] MEDS ORDERED: FLU VACC TS2017-18 (>65YR) 0.5 ML SYRINGE IM ONE (21:00)
[2017-03-10] MEDS: Levothyroxine Sodium 50 MCG TAB PO SCH (05:37)
[2017-03-10 05:40] LABS: #Basophils 0.1 thou/uL (0.0-0.2); #Eosinphils 0.3 thou/uL (0.0-0.7); #Lymphocytes 1.9 thou/uL (1.20-3.40); #Monocytes 0.8 thou/uL (0.11-0.59); #Neutrophils 4.2 thou/uL (1.40-6.50); %Basophils 0.7 % (0.0-1.0); %Eosinophils 4.2 % (0.0-10.0); %Lymphocytes 25.7 % (21.0-51.0); Hematocrit 34.2 % (36.0-47.0); Mean Platelet Volume 7.2 fL (7.4-10.4); White Blood Cell (WBC) Count 7.2 thou/uL (4.8-10.8)
[2017-03-10 06:03] LABS: Anion Gap 8 mmol/L (10-20); BUN (Urea Nitrogen) 10 mg/dL (9.8-20.1); Calc. Creatinine Clearance 71 mL/min (70-130); Calcium 9.1 mg/dL (7.8-10.44); Carbon Dioxide 35 mmol/L (23-31); Chloride 103 mmol/L (98-107); Estimated GFR-MDRD Greater than 90
[2017-03-10] MEDS: Ferrous Sulfate 325 MG TAB PO SCH (08:06)
[2017-03-10] MEDS: Metoprolol Tartrate 25 MG TAB PO SCH (08:06)
[2017-03-10] MEDS: ALPRAZolam 0.25 MG TAB PO SCH (08:06)
[2017-03-10] MEDS: Multivitamin W/ Minerals 1 TAB PO SCH (08:06)
[2017-03-10] MEDS: predniSONE 5 MG TAB PO SCH (08:06)
[2017-03-10] MEDS: Docusate 100 MG CAP PO SCH (08:06)
[2017-03-10] MEDS: cefTRIAXone\\ROCEPHIN 1 GM in Sodium Chloride 0.9% 100 ML IVPB SCH (11:04)
--- NOTE | 2017-03-10 11:39 | DIS ---
DATE OF ADMISSION: 03/04/2017 DATE OF DISCHARGE: 03/10/2017 PRIMARY CARE PHYSICIAN: Tish Roche M.D. DISCHARGE DISPOSITION: [facility] home. PRIMARY DISCHARGE DIAGNOSES: 1. Sepsis. 2. Urinary tract infection, recurrent. 3. Staghorn calculi. SECONDARY DISCHARGE DIAGNOSES: Rheumatoid arthritis, chronic normocytic anemia , and physical deconditioning. PRIMARY PROCEDURE/OPERATION: PICC line placement. RADIOLOGICAL INVESTIGATION: Chest x-ray was unremarkable. Renal ultrasound showed left-sided staghorn calculus, bladder calculi. CT of the abdomen and pelvis stone protocol also showed similar finding. SIGNIFICANT LABORATORY DATA: WBC 7.2, hemoglobin 10.8, platelets 174. Sodium 142, potassium 3.9, BUN 10, creatinine 0.53, calcium 9.1. Urinalysis suggestive of UTI. Urine culture grew E. coli. Blood culture negative. DISCHARGE MEDICATIONS: Rocephin 1 gram daily for 1 month and then patient will have cefpodoxime 200 mg p.o. b.i.d. as a prophylactic therapy. Continue following medications: Alprazolam 0.25 mg t.i.d., Ventolin nebulization q.6 hourly p.r.n., Tylenol 650 mg q.8 hourly p.r.n., Debrox ophthalmic drops b.i.d. p.r.n., Cymbalta 60 mg p.o. at bedtime, Colace 100 mg p.o. daily, [place] 5 one or two tablets q.8 hourly p.r.n., Synthroid 50 mcg p.o. daily, Milk of Magnesia 30 mL p.o. daily p.r.n., Mobic 15 mg p.o. daily, Lopressor 25 mg p.o. b.i.d., multivitamin 1 tablet p.o. daily, MiraLax 17 grams p.o. daily and at bedtime p.r.n., Phenergan 25 mg q.6 hourly p.r.n., Robitussin 10 mL q.4 hourly p.r.n., prednisone 5 mg p.o. daily. CONTRAINDICATIONS: None. CODE STATUS: DNR. INPATIENT CONSULTANTS: Dr. Aviles was following while in hospital. Dr. Verma was consulted while in hospital. Dr. Martinez was consulted while in hospital. TEST RESULTS PENDING ON DISCHARGE: None. ALLERGIES: QUININE, SHELLFISH. DISCHARGE PLAN: Post hospital, the patient will be discharged to usp unit where she can get IV antibiotic therapy for 1 month. HOSPITAL COURSE: An 81-year-old female who was admitted by Dr. Danielson. Please see his H\T\P for further details. The patient was admitted on 2016. [facility] where she was having nausea, vomiting , fever, and that is why she was sent to ER for further evaluation. The patient was found with sepsis. Her urinalysis was consistent with UTI. We did renal ultrasound which was showing staghorn calculi. The patient was initially admitted in [facility] and because the patient had been admitted in [facility], that is why Dr. Aviles saw this patient. During this admission, we also consulted Urology. Patient was not interested in going for any kind of surgical intervention during this admission rather she wanted to try only antibiotic therapy. Patient 's code status was changed to DNR during this admission. Upon stabilization, the patient was transferred to medical floor. Dr. Martinez recommended to continue IV antibiotic therapy for one month and then prophylactic therapy. We did CT stone protocol as well. We get PICC line today. At this point, the patient is waiting for outpatient IV antibiotic therapy arrangement once we have that arranged and she is medically stable for discharge later on today. On discharge, patient was having respiratory acidosis that is chronic for her from her COPD. The patient is seen and examined at bedside today. PHYSICAL EXAMINATION: VITAL SIGNS: Currently, temperature 98.2, pulse 108, respiratory rate 18, saturation 97% on 2 liters, blood pressure 175/82, weight 120 pounds. GENERAL: The patient is currently alert, awake, no obvious acute distress. HEAD: Normocephalic, atraumatic. LUNGS: Clear to auscultation without any obvious rhonchi or rales. CARDIAC: S1, S2 regular without any significant murmur. ABDOMEN: Soft and benign. EXTREMITIES: The patient does have rheumatoid deformity. NEUROLOGIC: Nonfocal examination. Paperwork for discharge done. Discharge medication reconciliation done. Total time spent on discharge day 31 minutes. SHAD
--- NOTE | 2017-03-10 11:52 | PDOC.PN ---
- Subjective Encounter Start Date: 03/10/17 Encounter Start Time: 09:55 -: old records requested/rev Patient seen and examined. No new complaints. No overnight events - Objective Resuscitation Status: Resuscitation Status DNR:Do Not Resuscitate MAR Reviewed: Yes Vital Signs & Weight: Vital Signs (12 hours) Temp Pulse Resp BP Pulse Ox 03/10/17 08:00 98.2 F 108 H 18 175/82 H 97 03/10/17 02:57 95 Weight Admit Weight 109 lb 4 oz Weight 120 lb 11.214 oz I&O: 03/09/17 03/10/17 03/11/17 06:59 06:59 06:59 Intake Total 360 960 240 Balance 360 960 240 Result Diagrams: 03/10/17 04:30 03/10/17 04:31 Phys Exam - Physical Examination Constitutional: NAD HEENT: PERRLA, moist MMs, sclera anicteric Neck: no JVD, supple Respiratory: no wheezing, no rales, no rhonchi Cardiovascular: RRR, no significant murmur, no rub Gastrointestinal: soft, non-tender, no distention, positive bowel sounds Musculoskeletal: no edema, pulses present Neurological: non-focal, normal sensation Lymphatic: no nodes Psychiatric: normal affect Skin: no rash, normal turgor Dx/Plan (1) SIRS (systemic inflammatory response syndrome) Code(s): R65.10 - SIRS OF NON-INFECTIOUS ORIGIN W/O ACUTE ORGAN DYSFUNCTION Status: Acute (2) Sepsis Code(s): A41.9 - SEPSIS, UNSPECIFIED ORGANISM Status: Acute Qualifiers: Sepsis type: Escherichia coli Qualified Code(s): A41.51 - Sepsis due to Escherichia coli [E. coli] (3) UTI (urinary tract infection) Status: Acute Qualifiers: Urinary tract infection type: acute cystitis (4) Chronic anemia Code(s): D64.9 - ANEMIA, UNSPECIFIED Status: Chronic (5) H/O rheumatoid arthritis Code(s): Z87.39 - PERSONAL HISTORY OF DISEASES OF THE MS SYS AND CONN TISS Status: Chronic (6) Staghorn calculus Code(s): N20.0 - CALCULUS OF KIDNEY Status: Chronic Comment: bilateral - Plan cont current plan of care, continue antibiotics, social studies teacher * medication reviewed as below * symptomatic treatment. * PICC line today * rocephin for 1 month, then vantin for prophyalxis * see discharge alejandrinay. Review of Systems - Review of Systems ENT: negative: Ear Pain, Ear Discharge, Nose Pain, Nose Discharge, Nose Congestion, Mouth Pain, Mouth Swelling, Throat Pain, Throat Swelling, Other Respiratory: negative: Cough, Dry, Shortness of Breath, Hemoptysis, SOB with Excertion, Pleuritic Pain, Sputum, Wheezing Cardiovascular: negative: Chest Pain, Palpitations, Orthopnea, Paroxysmal Noc. Dyspnea, Edema, Light Headedness, Other Gastrointestinal: negative: Nausea, Vomiting, Abdominal Pain, Diarrhea, Constipation, Melena, Hematochezia, Other Genitourinary: negative: Dysuria, Frequency, Incontinence, Hematuria, Retention , Other Musculoskeletal: negative: Neck Pain, Shoulder Pain, Arm Pain, Back Pain, Hand Pain, Leg Pain, Foot Pain, Other - Medications/Allergies Allergies/Adverse Reactions: Allergies Allergy/AdvReac Type Severity Reaction Status Date / Time quinine Allergy Intermediate Verified 11/16/15 09:39 shellfish derived Allergy Verified 11/17/15 05:33 Medications: Current Medications Hydrocodone Bitart/Acetaminophen ([place] 5/325) 1 tab PO Q6H PRN PRN Reason: Moderate Pain (4-6) Last Admin: 03/09/17 20:22 Dose: 1 tab Alprazolam (Xanax) 0.25 mg PO TID [facility] Last Admin: 03/10/17 08:06 Dose: 0.25 mg Docusate Sodium (Colace) 100 mg PO DAILY [facility] Last Admin: 03/10/17 08:06 Dose: 100 mg Duloxetine HCl (Cymbalta) 60 mg PO HS [facility] Last Admin: 03/09/17 20:14 Dose: Not Given Ferrous Sulfate (Feosol) 325 mg PO QAM-WM [facility] Last Admin: 03/10/17 08:06 Dose: 325 mg Ceftriaxone Sodium 1 gm/ (Sodium Chloride) 100 mls @ 200 mls/hr IVPB Q24HR [facility] Last Admin: 03/10/17 11:04 Dose: 100 mls Iron/Minerals/Multivitamins (Theragran M) 1 tab PO DAILY [facility] Last Admin: 03/10/17 08:06 Dose: 1 tab Levothyroxine Sodium (Synthroid) 50 mcg PO 0600 [facility] Last Admin: 03/10/17 05:37 Dose: 50 mcg Magnesium Hydroxide (Milk Of Magnesium) 30 ml PO DAILY PRN PRN Reason: Constipation Metoprolol Tartrate (Lopressor) 25 mg PO BID [facility] Last Admin: 03/10/17 08:06 Dose: 25 mg Polyethylene Glycol (Miralax) 17 gm PO Q2D@0900 [facility] Last Admin: 03/09/17 07:57 Dose: 17 gm Prednisone (Prednisone) 5 mg PO QAM-WM [facility] Last Admin: 03/10/17 08:06 Dose: 5 mg
--- NOTE | 2017-03-10 11:56 | SPC ---
LEFT UPPER EXTREMITY PICC LINE ULTRASOUND AND FLUOROSCOPIC GUIDANCE: PROCEDURE: After informed consent had been obtained, the patient was placed on the interventional suite table i n a supine position. The left arm was prepped and draped in a standard sterile fashion. Topical an esthesia was achieved utilizing 1% Lidocaine and sodium bicarbonate. Under real-time sonography, th e basilic vein of the left upper extremity was accessed with a small caliber needle with venous flas h present at the needle hub. A guidewire was then advanced in to the needle, and under real-time fl uoroscopy, the guidewire was advanced to the level of the inferior vena cava to confirm appropriate venous placement. A small skin incision was made and the needle was removed. Over the guidewire, a single lumen PICC line was cut to 41 cm. The PICC line was advanced under real-time fluoroscopy ov er the guidewire to the level of the cavoatrial junction. The guidewire and peelaway sheath were th en removed. PICC line flushed and aspirated appropriately and was secured to the left upper extremi ty. There were no procedural complications. DOSE: 12 mGy*\S\cm2. 0 minutes intermittent fluoroscopy. IMPRESSION: Technically successful ultrasound and fluoroscopic-guided left upper extremity PICC line placement, as above. POS: [facility]
[2017-03-10 14:59] VITALS: BP 185/70; TEMP 99.7
== END 2017-03-10 14:47 | DRG 871 ==
LOC: ERS 08:53 → IMCU/EMU 14:54 → T4-A 03-06 17:07
PROVIDERS: ADMIT Hospitalist; ATTEND Hospitalist
PROC: 5A09557 Assistance with Respiratory Ventilation, Greater than 96 Consecutive Hours, Continuous Positive Airway Pressure (ICD-10-PCS; 2017-03-04)
PROC: 02HV33Z Insertion of Infusion Device into Superior Vena Cava, Percutaneous Approach (ICD-10-PCS; principal; 2017-03-10)
DX: A41.9 Sepsis, unspecified organism (principal); R53.2 Functional quadriplegia; J96.02 Acute respiratory failure with hypercapnia; E87.2 Acidosis; N10 Acute pyelonephritis; N30.00 Acute cystitis without hematuria; I10 Essential (primary) hypertension; N20.0 Calculus of kidney; J44.9 Chronic obstructive pulmonary disease, unspecified; M06.9 Rheumatoid arthritis, unspecified; M24.60 Ankylosis, unspecified joint; D64.9 Anemia, unspecified; E03.9 Hypothyroidism, unspecified; R65.10 Systemic inflammatory response syndrome (SIRS) of non-infectious origin without acute organ dysfunction; Z66 Do not resuscitate; Z86.19 Personal history of other infectious and parasitic diseases; Z88.8 Allergy status to other drugs, medicaments and biological substances; Z87.440 Personal history of urinary (tract) infections; Z91.013 Allergy to seafood; Z96.653 Presence of artificial knee joint, bilateral; Z96.643 Presence of artificial hip joint, bilateral; Z96.622 Presence of left artificial elbow joint; Z96.621 Presence of right artificial elbow joint; Z96.693 Finger-joint replacement, bilateral; Z90.49 Acquired absence of other specified parts of digestive tract
CPT/HCPCS: 36415; 36569; 51701; 71010; 74176; 76770; 80048; 80053; 81003; 81015; 82805; 83605; 83735; 85025; 87040; 87077; 87086; 87149; 87186; 90471; 90682; 93005; 94660; 96361; 96365; 96375; 96376; A4353; C1751; G0008; G8978-GP-CM; G8979-GP-CL; G8987-GO-CJ; J0696; J1644; J2405; J7050; Q2036

== ENCOUNTER 2017-09-08 07:43 | Emergency (ER) | payer MEDICARE, MEDICAID ==
[2017-09-08 08:50] LABS: #Eosinphils 0.3 thou/uL (0.0-0.7); #Lymphocytes 2.1 thou/uL (1.20-3.40); #Monocytes 1.3 thou/uL (0.11-0.59); #Neutrophils 11.1 thou/uL (1.40-6.50); %Basophils 0.3 % (0.0-1.0); %Eosinophils 1.7 % (0.0-10.0); %Lymphocytes 14.2 % (21.0-51.0); %Monocytes 8.6 % (0.0-10.0); %Neutrophils 75.2 % (42.0-75.0); Hemoglobin 9.8 g/dL (12.0-16.0); Mean Corpuscular HGB CONC 32.6 g/dL (32.0-36.0); Mean Corpuscular Hemoglobin 30.4 pg (27.0-31.0); Mean Corpuscular Volume 93.3 fl (81.0-99.0); Mean Platelet Volume 5.8 fL (7.4-10.4); Platelet Count 324 thou/uL (130-400); Red Blood Cell (RBC) Count 3.22 mill/uL (4.20-5.40); White Blood Cell (WBC) Count 14.7 thou/uL (4.8-10.8)
[2017-09-08 09:21] LABS: ALT (SGPT) 10 U/L (8-55); AST (SGOT) 12 U/L (5-34); Albumin 3.7 g/dL (3.4-4.8); Alkaline Phosphatase 57 U/L (40-150); Anion Gap 12 mmol/L (10-20); BUN (Urea Nitrogen) 26 mg/dL (9.8-20.1); Bilirubin, Total 0.3 mg/dL (0.2-1.2); Calc. Creatinine Clearance 0 mL/min (70-130); Calcium 9.3 mg/dL (7.8-10.44); Carbon Dioxide 27 mmol/L (23-31); Chloride 101 mmol/L (98-107); Estimated GFR-MDRD 81; Globulin 2.9 g/dL (2.4-3.5); Glucose 102 mg/dL (83-110); Lipase 12 U/L (8-78); Potassium 4.3 mmol/L (3.5-5.1); Protein, Total 6.6 g/dL (6.0-8.3); Sodium 136 mmol/L (136-145)
[2017-09-08 09:25] LABS: CKMB 0.7 ng/mL (0-6.6); Troponin I Less than 0.010 ng/mL (< 0.028)
[2017-09-08 09:29] LABS: Bilirubin Negative (Negative); Blood, Urine Moderate (Negative); Clarity CLOUDY (Clear); Glucose, Urine (Dipstick) Negative (Negative); Leukocyte Large (Negative); Nitrite Negative (Negative); Protein, Urine (Dipstick) Negative (Neg-Trace); Specific Gravity, Urine 1.014 (1.002-1.036); pH, Urine 6.5 (5.0-9.0)
[2017-09-08 09:47] LABS: Bacteria/HPF 4+ HPF (None Seen); Squamous Epithelial 0-3 HPF (0-3)
[2017-09-08 09:50] LABS: Pathc Cast-AUWi Flag 2.76 (0-2.49)
[2017-09-08 10:12] LABS: Hyaline Casts/LPF 0-3 HYALINE CAST LPF (0-3 Hyaline); Manual Microscopic Reviewed? No Path Casts Seen
[2017-09-08] MEDS ORDERED: Ondansetron HCl/PF 4 MG/2 ML Vial ONE (10:32)
[2017-09-08] MEDS ORDERED: Morphine 4 MG/ML VIAL ONE (10:32)
--- NOTE | 2017-09-08 11:07 | RAD ---
PORTABLE CHEST 1 VIEW: Date: 09/08/17 Time: 1043 hours HISTORY: Chest pain. Nausea. FINDINGS: Comparison made with exam dated 03/04/17. There is continued elevation of the right hemidiaphragm. The heart size is normal. The aorta is tortu ous. No confluent areas of consolidation, pneumothoraces, or pleural effusions are seen. Postop [place] es of right shoulder arthroplasty again noted. IMPRESSION: No acute process. POS: [facility]
[2017-09-08 13:35] LABS: Troponin I Less than 0.010 ng/mL (< 0.028)
--- NOTE | 2017-09-11 15:02 | EKG ---
Test Reason : ER INDICATION Blood Pressure : / mmHG Vent. Rate : 119 BPM Atrial Rate : 119 BPM P-R Int : 148 ms QRS Dur : 076 ms QT Int : 312 ms P-R-T Axes : 061 -64 075 degrees QTc Int : 438 ms Sinus tachycardia Left axis deviation Possible Lateral infarct , age undetermined Abnormal ECG Confirmed by REGINO SPICER ([id number]), supervising editor trailer SABINO GILES ([id number]) on 09/11/2017 3:00:33 PM Referred By: Confirmed By:REGINO SPICER
== END 2017-09-08 14:45 | disposition home or self-care (01) ==
LOC: ERS 07:43
DX: R11.2 Nausea with vomiting, unspecified (principal); M06.9 Rheumatoid arthritis, unspecified; E03.9 Hypothyroidism, unspecified; I10 Essential (primary) hypertension; F41.9 Anxiety disorder, unspecified
CPT/HCPCS: 36415; 71045; 80053; 81003; 81015; 82553; 83605; 83690; 84484; 85025; 87077; 87086; 87186; 93005; 94760; 96361; 96374; 96375; J2270; J2405

== ENCOUNTER 2017-10-24 03:29 | Inpatient (IN) | payer MEDICARE, MEDICAID ==
[2017-10-24 04:29] LABS: Bilirubin Negative (Negative); Blood, Urine Moderate (Negative); Clarity TURBID (Clear); Glucose, Urine (Dipstick) Negative (Negative); Leukocyte Large (Negative); Nitrite Positive (Negative); Protein, Urine (Dipstick) Negative (Neg-Trace); Specific Gravity, Urine 1.016 (1.002-1.036); Urobilinogen 0.2 mg/dL (0.2-1.0)
[2017-10-24 04:32] LABS: Bacteria/HPF 2+ HPF (None Seen); Hyaline Casts/LPF 7-10 HYALINE CAST LPF (0-3 Hyaline)
[2017-10-24 04:42] LABS: Pathc Cast-AUWi Flag 2.61 (0-2.49); Yeast-AUWi Flag 141.9 (0-25.0)
[2017-10-24 04:55] LABS: Manual Microscopic Reviewed? No Path Casts Seen; Yeast-All Forms None Seen HPF (None Seen)
[2017-10-24 05:01] LABS: ALT (SGPT) 192 U/L (8-55); AST (SGOT) 153 U/L (5-34); Albumin 3.6 g/dL (3.4-4.8); Alkaline Phosphatase 183 U/L (40-150); Anion Gap 10 mmol/L (10-20); BUN (Urea Nitrogen) 19 mg/dL (9.8-20.1); Bilirubin, Total 0.6 mg/dL (0.2-1.2); Calc. Creatinine Clearance 0 mL/min (70-130); Calcium 8.8 mg/dL (7.8-10.44); Carbon Dioxide 28 mmol/L (23-31); Chloride 102 mmol/L (98-107); Estimated GFR-MDRD 90; Globulin 2.6 g/dL (2.4-3.5); Glucose 110 mg/dL (83-110); Potassium 3.9 mmol/L (3.5-5.1); Protein, Total 6.2 g/dL (6.0-8.3); Sodium 136 mmol/L (136-145)
[2017-10-24 05:13] LABS: Hemoglobin 10.2 g/dL (12.0-16.0); Mean Corpuscular HGB CONC 31.6 g/dL (32.0-36.0); Mean Corpuscular Hemoglobin 28.2 pg (27.0-31.0); Mean Corpuscular Volume 89.3 fl (81.0-99.0); Platelet Count 228 thou/uL (130-400); RBC Distribution Width 13.9 % (11.5-14.5); White Blood Cell (WBC) Count 23.8 thou/uL (4.8-10.8)
[2017-10-24 05:29] LABS: Band 6 % (5-11); Hypochromia SLIGHT = 6-15 cells (100X) (0-5/hpf); Lymphocytes 6 % (21-51); MDiff Complete? YES; Monocytes 8 % (0-10); Neutrophil 80 % (42-75); PLT Morphology Comment Appears Adequate
[2017-10-24] MEDS ORDERED: cefTRIAXone\\ROCEPHIN 1 GM VIAL ONE (05:48)
[2017-10-24] MEDS ORDERED: Ondansetron ODT 4 MG TAB SL PRN (06:49)
[2017-10-24] MEDS ORDERED: Ondansetron HCl/PF 4 MG/2 ML Vial IVP PRN ×2 (06:49→12:09)
[2017-10-24] MEDS ORDERED: Acetaminophen 325 MG TAB PO PRN ×2 (06:49→12:09)
[2017-10-24] MEDS ORDERED: Sodium Chloride 0.9% 1,000 ML IV SCH ×2 (06:49→07:15)
[2017-10-24] MEDS ORDERED: Meropenem 1 GM in Sodium Chloride 0.9% 100 ML IVPB SCH (07:15)
[2017-10-24 07:36] VITALS: BMI 19.7
--- NOTE | 2017-10-24 08:18 | RAD ---
SINGLE VIEW OF THE CHEST: COMPARISON: 09/08/17. HISTORY: Shortness of breath and altered mental status. FINDINGS: A single view of the chest shows a normal-size cardiomediastinal silhouette with atherosclerotic calc ifications in the aorta. There is no evidence of consolidation, mass, or pleural effusion. Increase d interstitial lung markings are present. Degenerative changes are seen in the spine and left should er. The patient is status post right shoulder arthroplasty. IMPRESSION: No evidence of acute cardiopulmonary disease. POS: [facility]
[2017-10-24] MEDS: Piperacillin/Tazobactam 3.375 GM in Sodium Chloride 0.9% 100 ML IVPB SCH ×3 (11:00→21:23)
--- NOTE | 2017-10-24 12:01 | ULT ---
ULTRASOUND ABDOMEN: Date: 10/24/17 HISTORY: Abnormal LFTs, nephrolithiasis, UTI. FINDINGS: The patient is post cholecystectomy. The liver demonstrates coarse echotexture without focal mass or intrahepatic ductal dilatation. The spleen measures 10.2 cm in length. The common duct measures 4.0 m m in diameter. Pancreas and abdominal aorta are not well visualized due to overlying bowel gas. Visua lized portions of the IVC are unremarkable. No hydronephrosis is identified. There is 2.0 cm hypoecho ic lesion in the right kidney. There are multiple shadowing foci of the left kidney with hydronephros is on either side. No free fluid is seen. There is suggestion of small left pleural effusion. IMPRESSION: 1. Probable fatty infiltration of the liver. 2. Status post cholecystectomy. 3. Probable 2.0 cm cyst in the right kidney. 4. Nonobstructing left renal calculi. POS: [facility]
--- NOTE | 2017-10-24 12:02 | ULT ---
ULTRASOUND GLADDER: Date: 10/24/17 HISTORY: Abnormal LFTs. Renal calculi. FINDINGS/IMPRESSION: Multiple echogenic foci are seen in the bladder, demonstrating shadowing. Findings are suspicious for calculi. A mass, however, cannot be excluded. Further evaluation with CT scan of the abdomen and pelvis using urography protocol is recommended. POS: [facility]
[2017-10-24] MEDS ORDERED: Artificial Tears 18 DROP/0.9 ML EA EYE PRN (12:09)
[2017-10-24] MEDS ORDERED: Ondansetron ODT 4 MG TAB PO PRN (12:09)
[2017-10-24] MEDS ORDERED: hydrALAZINE 20 MG/ML VIAL SLOW IVP PRN (12:09)
[2017-10-24] MEDS ORDERED: Milk Of Magnesia 30 ML UDCUP PO PRN (12:09)
[2017-10-24] MEDS ORDERED: Sodium Chloride 0.65% Nasal 44 ML BOT EA NARE PRN (12:09)
[2017-10-24] MEDS ORDERED: Diabetic Tussin 200 MG/10 ML UDCUP PO PRN (12:09)
[2017-10-24] MEDS ORDERED: Mag-Al 1200 mg/1200 mg/30 ML UDCUP PO PRN (12:09)
[2017-10-24] MEDS ORDERED: Loperamide HCl 2 MG CAP PO PRN (12:09)
[2017-10-24] MEDS ORDERED: Senokot 8.6 MG TAB PO PRN (12:09)
[2017-10-24] MEDS ORDERED: Zolpidem Tartrate 5 MG TAB PO PRN (12:09)
[2017-10-24] MEDS ORDERED: Eucerin (Mineral Oil/Petrolatum,White) 30 gm Jar TOP PRN (12:09)
[2017-10-24] MEDS ORDERED: Loratadine 10 MG TAB PO PRN (12:09)
[2017-10-24] MEDS ORDERED: Chloraseptic Spray 180 ml Bottle PO PRN (12:09)
[2017-10-24] MEDS ORDERED: Carbamide Peroxide 6.5% Otic Drops 15 ml Bottle EA EAR PRN (12:11)
[2017-10-24] MEDS ORDERED: Promethazine 25 MG TAB PO PRN (12:11)
--- NOTE | 2017-10-24 12:39 | CT ---
NONCONTRAST CT ABDOMEN AND PELVIS: DATE: 10/24/17. HISTORY: Sepsis, UTI. COMPARISON: Multiple prior studies including studies on 03/09/17, 11/15/15, and 03/18/11. FINDINGS: Again noted is a staghorn left renal calculus. There is a staghorn-appearing right renal calculus as well, although there are multiple calculi which appear separate from one another as well. There is no evidence of hydronephrosis bilaterally. There is a left ureteral stent noted in place with calcul i seen along the left ureteral stent. Multiple urinary bladder calculi are also seen. Several of the calculi are seen adjacent to the dist al portion of the ureteral stent. 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 This is stable from the prior exam and was also seen on the prior study in 2010, although slightly larger in size from that exam there this lesion measured 1.5 cm. There are pleural-based calcifications at the left lung base. There is bibasilar atelectasis. There are subcapsular calcifications involving the spleen, stable from prior study. Post cholecystectomy changes are seen. There is spray artifact to the upper abdomen due to right elbow prosthesis, but no definite abnormali ty is seen on this nonenhanced CT scan examination involving the liver and spleen. The pancreas and bilateral adrenal glands demonstrate a grossly normal nonenhanced CT appearance. Ca lcifications likely related to vascular calcifications, are seen within the uterus. Colonic diverticulosis is present. There are degenerative changes seen in the spine, and there is evidence of osteopenia. Vascular calc ifications are present. No other interval change. IMPRESSION: 1. Bilateral nephrolithiasis with staghorn renal calculi bilaterally, much more prominent on the lef t. 2. Left ureteral stent noted in place which is calcified with urinary bladder calculi also seen whic h also are seen adjacent to the distal portion of the left ureteral stent within the urinary bladder. This was also present on the prior exam. The mild left hydronephrosis and is stable from the prior study. 3. The remainder of the findings are as described above, and CT scan of the abdomen and pelvis is ov erall stable compared to the study in 2017; although, there has been resolution of the bilateral pleu ral effusions from prior exam. POS: [facility]
--- NOTE | 2017-10-24 13:02 | HP ---
PRIMARY CARE PHYSICIAN: Dr. Tish Roche at [facility]. REASON FOR ADMISSION: Transfer from retirement for sepsis. HISTORY OF PRESENT ILLNESS: An 82-year-old female who has underlying history of rheumatoid arthritis with joint deformities as well as bilateral nephrolithiasis (staghorn calculi). She has recurrent urinary tract infection in past and she lives at [facility]. Per patient, she was fine yesterday, but last night she all of a suddenly experiencing rigors and chills. She started having nausea and vomiting. The patient was having fever. The patient was also feeling mild shortness of breath. She appeared sick at retirement and that is why patient was sent to emergency room for evaluation. In the emergency room, patient was febrile, tachycardic, hypotensive. Her routine blood tests showed leukocytosis with a left shift with bandemia. Her LFT was also abnormal. Her urinalysis was suggestive of UTI. Patient was admitted to medical floor. She was given in the emergency room Rocephin 1 gram and IV fluid. Subsequently, she was admitted to medical floor. This patient has a previous history of staghorn calculi. At that time, Urology , Dr. Verma evaluated this patient and he was not thinking that any intervention was necessary for that lady. She was given at that time IV antibiotic therapy through the PICC line as per Dr. Martinez' recommendation and subsequently patient was instructed to keep on oral cephalosporin. Patient was not on any antibiotic therapy at retirement. Patient denies any diarrhea. She denies any constipation, melena or hematochezia. She denies any headaches. She denies any focal motor or sensory symptoms. She denies any chest pain, palpitation or syncope. Patient was given Zofran 4 mg p.o., Phenergan 25 mg IV, IV fluid 1 liter by paramedics prior to arrival to emergency room. ALLERGIES: IODINE and SHELLFISH as well as QUININE. CURRENT HOME MEDICATIONS: Tylenol 650 mg q.8 hourly p.r.n., Xanax 0.25 mg p.o. t.i.d., amlodipine 5 mg p.o. daily, Debrox otic drops each ear b.i.d., Colace 100 mg p.o. daily, Artificial Tears 2 drops each eye as directed, Robitussin p.r.n. basis, levothyroxine 50 mcg p.o. daily, Mobic 15 mg p.o. daily, metoprolol tartrate 25 mg p.o. b.i.d., omeprazole 20 mg p.o. daily, MiraLax 17 grams p.o. daily, prednisone 5 mg p.o. daily, Zofran, Phenergan, Milk of Magnesia, Maalox p.r.n. basis. PAST MEDICAL HISTORY: Rheumatoid arthritis with joint deformity; nephrolithiasis, bilateral (staghorn calculi); recurrent urinary tract infection ; hypothyroidism; hypertension; functional quadriplegia; vitamin D deficiency. PAST SURGICAL HISTORY: Multiple joint replacement, cholecystectomy. PAST PSYCHIATRIC HISTORY: Dysthymic disorder. SOCIAL HISTORY: Patient lives at [facility]. She does not have any tobacco, alcohol or illicit drug abuse. FAMILY HISTORY: No strong family history of premature coronary artery disease, stroke or cancer. EMERGENCY ROOM COURSE: The patient has received IV fluid and Rocephin. REVIEW OF SYSTEMS: The following complete review of systems was negative, unless otherwise mentioned in the HPI or below: Constitutional: Weight loss or gain, ability to conduct usual activities. Skin: Rash, itching. Eyes: Double vision, pain. ENT/Mouth: Nose bleeding, neck stiffness, pain, tenderness. Cardiovascular: Palpitations, dyspnea on exertion, orthopnea. Respiratory: Shortness of breath, wheezing, cough, hemoptysis, fever or night sweats. Gastrointestinal: Poor appetite, abdominal pain, heartburn, nausea, vomiting, constipation, or diarrhea. Genitourinary: Urgency, frequency, dysuria, nocturia. Musculoskeletal: Pain, swelling. Neurologic/Psychiatric: Anxiety, depression. Allergy/Immunologic: Skin rash, bleeding tendency. Please see my HPI for pertinent positive and negative. All other review of systems reviewed and negative except as mentioned in the HPI. PHYSICAL EXAMINATION: VITAL SIGNS: Temperature 101.6, pulse 101, respiratory rate 18, saturation 100 % on room air, blood pressure 93/56, weight 114 pounds. GENERAL: The patient is currently alert, awake, no obvious acute distress. HEAD: Normocephalic, atraumatic. EYES: Pupils round, reactive to light. Extraocular muscle intact. ENT: Oropharynx within normal limits. Moist mucous membrane, no oral lesion, no pharyngeal erythema, no exudate. NECK: Supple, no JVD, no thyromegaly, no carotid bruit, no jugular venous distention. LUNGS: Clear to auscultation without any rhonchi or rales. CARDIAC: S1, S2 appears regular. No murmur, no gallop, no rub. Tachycardia. ABDOMEN: Soft, bowel sounds present, nontender, nondistended. No organomegaly , no mass, no suprapubic tenderness, no Frances sign, no epigastric tenderness. No peritoneal sign. BACK: Unremarkable, no CVA tenderness. EXTREMITIES: Upper extremity: Passive movements of all joints are normal. Patient does have multiple joint deformity from rheumatoid arthritis as well as contracture of upper extremity bilaterally. Lower extremity: Patient does have joint deformity, no edema. Good peripheral pulsation. SKIN: No skin rash. HEMATOLOGIC: No lymphadenopathy. PSYCHIATRIC: Normal affect. NEUROLOGIC: The patient is moving all 4 limbs, follows all commands. Grossly looking. No focal neurological deficit. SIGNIFICANT LABS: EKG showing sinus tachycardia, left axis deviation. Chest x- ray based on my review, no acute cardiopulmonary process. CBC: WBC 23.8, hemoglobin 10.2, platelet 228 with bandemia, D-dimer 1.93. BMP: Sodium 136, potassium 3.9, chloride 102, carbon dioxide 28, anion gap 10, BUN 19, creatinine 0.623, glucose 110, calcium 8.8. Lactic acid 1.6. LFT: Bilirubin 0.6, AST 153, ALT 192, alkaline phosphatase is 183, albumin 3.6, lipase 11, amylase 27. BNP 227.8, albumin 3.6. Urinalysis suggestive of urinary tract infection. Ultrasound bladder showing multiple echogenic foci within the bladder consistent with calculi. Ultrasound abdomen showing fatty of the liver abscess, status post cholecystectomy, renal cyst, nonobstructive left renal calculi. CT of the abdomen and pelvis done, but report is pending. ASSESSMENT AND PLAN/IMPRESSION: 1. Sepsis, source of infection is most likely urinary tract infections. She has recurrent urinary tract infections in the past. She does have staghorn calculi. This patient's clinical presentation with hypotension, tachycardia, and high grade fever with leukocytosis with bandemia, all consistent with sepsis. The patient will be monitored on medical floor. We will continue with IV fluid. We will follow up on culture result. We will start broad spectrum antibiotic therapy with vancomycin and Zosyn. 2. Urinary tract infection. Patient does have recurrent urinary tract infections. This patient has complicated urinary tract infections from staghorn calculi. Based on previous culture and sensitivity result, we are starting Zosyn as well as vancomycin. If blood culture remains negative, then we will discontinue vancomycin and continue with Zosyn. Based on culture result and a CT of the abdomen and pelvis finding, we will decide Infectious Disease or Urology involvement in this patient's care. We did consult Urology last year, but at that time, they did not recommend any surgical intervention and we did consult Dr. Martinez and he recommended to continue IV antibiotic therapy during this admission. Because patient has multidrug resistance organism, she may need long-term antibiotic therapy. 3. Nephrolithiasis. As mentioned above, the patient is not a candidate for any kind of surgical treatment for her renal nephrolithiasis. 4. Abnormal liver function tests, likely related with sepsis. This patient already had status post cholecystectomy and she does not have any Frances sign or any tenderness in right upper quadrant. We will repeat liver function tests tomorrow. Ultrasound showing some fatty liver changes. 5. Anemia of chronic disease. Patient will be given multivitamin and ferrous sulfate. 6. Elevated D-dimer, this is likely related with sepsis. This patient does not have any clinical history to suspect any thromboembolic disorder at this point. We will cancel the CT angio given. The patient is allergic to IODINE and CONTRAST and there were suspicious for thromboembolic disorder is extremely unlikely. 7. Hypothyroidism. We will continue Synthroid 50 mcg p.o. daily. 8. Anxiety/depression. We will continue Xanax 0.25 mg p.o. t.i.d. 9. Hypertension. Currently, the patient has low blood pressure, but when blood pressure improves, at that time, we will start amlodipine and metoprolol as per home dosage. 10. Chronic constipation. Continue Colace 100 mg p.o. daily, MiraLax 17 grams p.o. daily. 11. Gastroesophageal reflux disease. Continue Protonix 40 mg p.o. daily. 12. Rheumatoid arthritis with joint deformity. Continue prednisone 5 mg p.o. daily. 13. Moderate protein calorie malnutrition. The patient will be given nutritional supplement with Ensure while in hospital. 14. Deep venous thrombosis prophylaxis. Lovenox 30 mg subcutaneously daily. 15. Gastrointestinal prophylaxis, Protonix 40 mg p.o. daily. CODE STATUS: The patient is DNR. Code status discussed with the patient and the patient's son in the bedside on the floor. Patient's son is surrogate decision maker. Disposition plan based on clinical course. We are expecting patient's stay in hospital more than 2 midnights. Plan of care discussed with the patient and patient's son in detail. MTDD
[2017-10-24] MEDS: Sodium Chloride 0.9% 1,000 ML IV SCH ×2 (14:50→21:23)
[2017-10-24] MEDS: ALPRAZolam 0.25 MG TAB PO SCH ×2 (15:46→21:26)
[2017-10-24] MEDS: Metoprolol Tartrate 25 MG TAB PO SCH (21:23)
[2017-10-25] MEDS: Piperacillin/Tazobactam 3.375 GM in Sodium Chloride 0.9% 100 ML IVPB SCH ×4 (04:38→21:21)
[2017-10-25 05:53] LABS: ALT (SGPT) 112 U/L (8-55); AST (SGOT) 59 U/L (5-34); Alkaline Phosphatase 146 U/L (40-150); Anion Gap 11 mmol/L (10-20); BUN (Urea Nitrogen) 24 mg/dL (9.8-20.1); Bilirubin, Total 0.4 mg/dL (0.2-1.2); Calc. Creatinine Clearance 48 mL/min (70-130); Calcium 8.2 mg/dL (7.8-10.44); Carbon Dioxide 22 mmol/L (23-31); Chloride 108 mmol/L (98-107); Estimated GFR-MDRD 76; Globulin 2.8 g/dL (2.4-3.5); Glucose 83 mg/dL (83-110); Potassium 4.1 mmol/L (3.5-5.1); Protein, Total 5.8 g/dL (6.0-8.3); Sodium 137 mmol/L (136-145)
[2017-10-25] MEDS: HYDROcodone/Acetaminophen 5/325 mg Tablet PO PRN (06:11)
[2017-10-25 06:22] LABS: Band 9 % (5-11); Hemoglobin 9.9 g/dL (12.0-16.0); Hypochromia SLIGHT = 6-15 cells (100X) (0-5/hpf); Lymphocytes 6 % (21-51); MDiff Complete? YES; Mean Corpuscular HGB CONC 30.5 g/dL (32.0-36.0); Mean Corpuscular Hemoglobin 27.9 pg (27.0-31.0); Mean Corpuscular Volume 91.3 fl (81.0-99.0); Mean Platelet Volume 6.5 fL (7.4-10.4); Monocytes 6 % (0-10); Neutrophil 79 % (42-75); PLT Morphology Comment Appears Adequate; Platelet Count 166 thou/uL (130-400); Red Blood Cell (RBC) Count 3.54 mill/uL (4.20-5.40); White Blood Cell (WBC) Count 16.6 thou/uL (4.8-10.8)
[2017-10-25] MEDS: Enoxaparin Sodium 40 MG/0.4 ML SYRINGE SC SCH (08:05)
[2017-10-25] MEDS: Metoprolol Tartrate 25 MG TAB PO SCH ×2 (08:05→21:19)
[2017-10-25] MEDS: Amlodipine 5 MG TAB PO SCH (08:05)
[2017-10-25] MEDS: Polyethylene Glycol 3350 17 GM Packet PO SCH (08:05)
[2017-10-25] MEDS: Docusate 100 MG CAP PO SCH (08:05)
[2017-10-25] MEDS: predniSONE 5 MG TAB PO SCH (08:06)
[2017-10-25] MEDS: ALPRAZolam 0.25 MG TAB PO SCH ×4 (08:06→21:23)
[2017-10-25] MEDS: Meloxicam 15 MG TAB PO SCH (08:06)
[2017-10-25] MEDS: Levothyroxine Sodium 50 MCG TAB PO SCH (08:06)
[2017-10-25] MEDS: Sodium Chloride 0.9% 1,000 ML IV SCH ×3 (08:06→21:21)
[2017-10-25] MEDS: Saccharomyces boulardii 250 MG CAP PO SCH (08:06)
[2017-10-25] MEDS ORDERED: Enoxaparin Sodium 30 MG/0.3 ML SYRINGE SC SCH (09:00)
--- NOTE | 2017-10-25 23:42 | PDOC.PN ---
- Subjective Encounter Start Date: 10/25/17 Encounter Start Time: 10:30 Patient seen and examined for UTI/Sepsis/Bacteremia. No new complaints. Feels somewhat better. No fever/chills. No overnight events - Objective Resuscitation Status: Resuscitation Status DNR:Do Not Resuscitate MAR Reviewed: Yes Vital Signs & Weight: Vital Signs (12 hours) Temp Pulse Resp BP Pulse Ox 10/25/17 20:00 98.0 F 78 16 93 L 10/25/17 19:50 98.0 F 78 16 106/64 93 L 10/25/17 16:42 97.7 F 78 16 99/51 L 93 L Weight Weight 114 lb 11.2 oz I&O: 10/24/17 10/25/17 10/26/17 06:59 06:59 06:59 Intake Total 1440 480 Balance 1440 480 Result Diagrams: 10/26/17 04:34 10/26/17 04:34 Radiology Reviewed by me: Yes (CT abd - mild left hydronephrosis, RUQ USG - no obstruction) Phys Exam - Physical Examination Constitutional: NAD Respiratory: no wheezing, no rhonchi, clear to auscultation bilateral Scat rales at bases Cardiovascular: RRR, no rub no heaves/pulsations Gastrointestinal: soft, non-tender, no distention, positive bowel sounds Musculoskeletal: no edema Neurological: non-focal, moves all 4 limbs Psychiatric: normal affect, A&O x 3 Dx/Plan (1) Sepsis with acute organ dysfunction Code(s): A41.9 - SEPSIS, UNSPECIFIED ORGANISM; R65.20 - SEVERE SEPSIS WITHOUT SEPTIC SHOCK Status: Acute (2) Bacteremia Code(s): R78.81 - BACTEREMIA Status: Acute (3) UTI (urinary tract infection) Status: Acute Comment: Complicated UTI due to renal calculi (4) Abnormal LFTs Code(s): R94.5 - ABNORMAL RESULTS OF LIVER FUNCTION STUDIES Status: Acute Comment: USG neg, Prob due to Sepsis (5) HTN (hypertension) Code(s): I10 - ESSENTIAL (PRIMARY) HYPERTENSION Status: Chronic (6) H/O rheumatoid arthritis Code(s): Z87.39 - PERSONAL HISTORY OF DISEASES OF THE MS SYS AND CONN TISS Status: Chronic Comment: on chronic steroids (7) Moderate protein-calorie malnutrition Code(s): E44.0 - MODERATE PROTEIN-CALORIE MALNUTRITION Status: Acute (8) Other issues per H&P Status: Chronic - Plan plan discussed w/ family, sorto catheter, continue antibiotics, PT/OT, DVT proph w/lovenox, DVT proph w/SCDs Cont Zosyn, Consult ID -: Cont current meds as below -: Reduce IVF to 75 ml/hr Review of Systems - Review of Systems Respiratory: negative: Cough, Dry, Shortness of Breath, Hemoptysis, SOB with Excertion, Pleuritic Pain, Sputum, Wheezing Cardiovascular: negative: chest pain, palpitations, orthopnea, paroxysmal nocturnal dyspnea, edema, light headedness, other Gastrointestinal: negative: Nausea, Vomiting, Abdominal Pain, Diarrhea, Constipation, Melena, Hematochezia, Other - Medications/Allergies Allergies/Adverse Reactions: Allergies Allergy/AdvReac Type Severity Reaction Status Date / Time quinine Allergy Intermediate Verified 10/24/17 07:06 iodine Allergy Verified 10/25/17 01:21 shellfish derived Allergy Verified 10/24/17 07:06 Medications: Current Medications Acetaminophen (Tylenol) 650 mg PO Q4H PRN PRN Reason: Headache/Fever or Pain Last Admin: 10/24/17 15:43 Dose: 650 mg Hydrocodone Bitart/Acetaminophen (Calvin 5/325) 1 tab PO Q4H PRN PRN Reason: Moderate Pain (4-6) Last Admin: 10/25/17 06:11 Dose: 1 tab Al Hydroxide/Mg Hydroxide (Maalox) 30 ml PO Q6H PRN PRN Reason: Heartburn or Indigestion Alprazolam (Xanax) 0.25 mg PO TID [facility] Last Admin: 10/25/17 21:23 Dose: Not Given Amlodipine Besylate (Norvasc) 5 mg PO DAILY [facility] Last Admin: 10/25/17 08:05 Dose: 5 mg Artificial Tears (Tears Naturale) 0 drop EA EYE PRN PRN PRN Reason: Dry Eyes Carbamide Perox/Anhydrous Glycerin (Debrox 6.5% Otic) 5 drop EA EAR BID PRN PRN Reason: cerum impaction Docusate Sodium (Colace) 100 mg PO DAILY [facility] Last Admin: 10/25/17 08:05 Dose: 100 mg Enoxaparin Sodium (Lovenox) 40 mg SC 0900 [facility] Last Admin: 10/25/17 08:05 Dose: 40 mg Guaifenesin (Robitussin Sf) 200 mg PO Q4H PRN PRN Reason: Cough Hydralazine HCl (Apresoline) 10 mg SLOW IVP Q4H PRN PRN Reason: Systolic BP > 180 Piperacillin Sod/Tazobactam (Sod 3.375 gm/ Sodium Chloride) 100 mls @ 200 mls/ hr IVPB 0400,1000,1600,2200 [facility] Last Admin: 10/25/17 21:21 Dose: 100 mls Sodium Chloride (Normal Saline 0.9%) 1,000 mls @ 75 mls/hr IV .[id number] [facility] Last Admin: 10/25/17 21:21 Dose: 1,000 mls Levothyroxine Sodium (Synthroid) 50 mcg PO DAILY [facility] Last Admin: 10/25/17 08:06 Dose: 50 mcg Loperamide HCl (Imodium) 2 mg PO PRN PRN PRN Reason: Diarrhea/Loose Stools Loratadine (Claritin) 10 mg PO DAILYPRN PRN PRN Reason: Sinus Symptoms Magnesium Hydroxide (Milk Of Magnesium) 30 ml PO DAILYPRN PRN PRN Reason: Constipation Meloxicam (Mobic) 15 mg PO DAILY [facility] Last Admin: 10/25/17 08:06 Dose: 15 mg Metoprolol Tartrate (Lopressor) 25 mg PO BID [facility] Last Admin: 10/25/17 21:19 Dose: Not Given Mineral Oil/White Petrolatum (Eucerin Cream) 0 gm TOP BIDPRN PRN PRN Reason: Dry Skin Miscellaneous Medication (Pharmacy To Dose) 1 each IVPB ONE PRN PRN Reason: Pharmacy to dose Stop: 11/03/17 07:12 Ondansetron HCl (Zofran Odt) 4 mg PO Q6H PRN PRN Reason: Nausea/Vomiting Ondansetron HCl (Zofran) 4 mg IVP Q6H PRN PRN Reason: Nausea/Vomiting Pantoprazole Sodium (Protonix) 40 mg PO DAILY [facility] Last Admin: 10/25/17 08:06 Dose: 40 mg Phenol (Chloraseptic [place] 180 Ml Bot) 0 ml PO PRN PRN PRN Reason: Sore Throat Polyethylene Glycol (Miralax) 17 gm PO DAILY [facility] Last Admin: 10/25/17 08:05 Dose: 17 gm Prednisone (Prednisone) 5 mg PO QAM-WM [facility] Last Admin: 10/25/17 08:06 Dose: 5 mg Promethazine HCl (Phenergan) 25 mg PO Q6H PRN PRN Reason: Nausea/Vomiting Saccharomyces Boulardii (Florastor) 250 mg PO DAILY [facility] Last Admin: 10/25/17 08:06 Dose: 250 mg Senna (Senokot) 2 tab PO HSPRN PRN PRN Reason: Constipation Sodium Chloride (Flush - Normal Saline) 10 ml IVF Q12HR [facility] Last Admin: 10/25/17 21:19 Dose: Not Given Sodium Chloride (Flush - Normal Saline) 10 ml IVF PRN PRN PRN Reason: Saline Flush Sodium Chloride ([place]amar Nasal [place] 0.65%) 0 ml EA NARE QIDPRN PRN PRN Reason: Nasal Congestion Zolpidem Tartrate (Ambien) 5 mg PO HSPRN PRN PRN Reason: Insomnia
[2017-10-26] MEDS: HYDROcodone/Acetaminophen 5/325 mg Tablet PO PRN ×3 (01:58→22:10)
[2017-10-26] MEDS: Piperacillin/Tazobactam 3.375 GM in Sodium Chloride 0.9% 100 ML IVPB SCH ×2 (05:00→08:54)
[2017-10-26 05:42] LABS: #Eosinphils 0.2 thou/uL (0.0-0.7); #Lymphocytes 0.8 thou/uL (1.20-3.40); #Monocytes 0.8 thou/uL (0.11-0.59); #Neutrophils 10.5 thou/uL (1.40-6.50); %Eosinophils 1.5 % (0.0-10.0); %Lymphocytes 6.5 % (21.0-51.0); %Monocytes 6.6 % (0.0-10.0); %Neutrophils 85.4 % (42.0-75.0); Hemoglobin 8.7 g/dL (12.0-16.0); Mean Corpuscular HGB CONC 29.9 g/dL (32.0-36.0); Mean Corpuscular Hemoglobin 27.3 pg (27.0-31.0); Mean Corpuscular Volume 91.2 fl (81.0-99.0); Mean Platelet Volume 6.5 fL (7.4-10.4); Platelet Count 185 thou/uL (130-400); RBC Distribution Width 13.6 % (11.5-14.5); White Blood Cell (WBC) Count 12.3 thou/uL (4.8-10.8)
[2017-10-26 05:44] LABS: Anion Gap 6 mmol/L (10-20); BUN (Urea Nitrogen) 20 mg/dL (9.8-20.1); Calc. Creatinine Clearance 56 mL/min (70-130); Calcium 8.3 mg/dL (7.8-10.44); Carbon Dioxide 26 mmol/L (23-31); Chloride 110 mmol/L (98-107); Estimated GFR-MDRD 90; Glucose 105 mg/dL (83-110); Magnesium 1.9 mg/dL (1.6-2.6); Potassium 3.3 mmol/L (3.5-5.1); Sodium 139 mmol/L (136-145)
[2017-10-26] MEDS: Enoxaparin Sodium 40 MG/0.4 ML SYRINGE SC SCH (08:53)
[2017-10-26] MEDS: Meloxicam 15 MG TAB PO SCH (08:53)
[2017-10-26] MEDS: Saccharomyces boulardii 250 MG CAP PO SCH (08:53)
[2017-10-26] MEDS: ALPRAZolam 0.25 MG TAB PO SCH ×3 (08:53→22:10)
[2017-10-26] MEDS: Amlodipine 5 MG TAB PO SCH (08:53)
[2017-10-26] MEDS: Levothyroxine Sodium 50 MCG TAB PO SCH (08:53)
[2017-10-26] MEDS: Polyethylene Glycol 3350 17 GM Packet PO SCH ×2 (08:54→08:58)
[2017-10-26] MEDS: predniSONE 5 MG TAB PO SCH (08:54)
[2017-10-26] MEDS: Docusate 100 MG CAP PO SCH (08:54)
[2017-10-26] MEDS: Metoprolol Tartrate 25 MG TAB PO SCH ×2 (08:54→22:10)
[2017-10-26] MEDS: cefTRIAXone\\ROCEPHIN 2 GM in Sodium Chloride 0.9% 100 ML IVPB SCH (10:18)
[2017-10-26] MEDS: Sodium Chloride 0.9% 1,000 ML IV SCH (13:19)
--- NOTE | 2017-10-26 23:58 | CON ---
DATE OF CONSULTATION: 10/27/2017 REASON FOR CONSULTATION: Rheumatoid arthritis with staghorn calculi and recurrence of invasive UTI. 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 Patient has had stents in the past and had also bilateral laser lithotripsy and extraction of stones. The last time I saw her was in March last year, she was treated with IV Rocephin. Dr. Verma evaluated patient and he recommended continuation of IV antimicrobial therapy and consideration of hospice and palliative care. Currently, she appears in no distress. She denies headaches, no dyspnea, no abdominal pain, no vomiting, no bleeding. 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 FAMILY HISTORY: Hypertension, hypothyroidism, cholecystectomy. SOCIAL HISTORY: long-term resident at [facility]. Never smoker. ALLERGIES: None. CURRENT MEDICATIONS: Include Tylenol, [place], Maalox, Xanax, Norvasc, ceftriaxone, docusate, enoxaparin, guaifenesin, levothyroxine, loperamide, meloxicam, metoprolol, ondansetron, prednisone 5 mg daily, Saccharomyces, zolpidem. PHYSICAL EXAMINATION: VITAL SIGNS: T-max 101.6 have been afebrile since. SKIN: No significant lesions in the skin. She has had peripheral IV access and is voiding spontaneously. GENERAL: She is no distress, pleasant, oriented. No lymphadenopathy. HEENT: Ocular movements conjugate. Oral cavity is unremarkable. NECK: Supple. LUNGS: Symmetrically breath sounds. HEART: S1, S2, regular rate without murmurs. No S3, S4. ABDOMEN: Soft, not distended or tender. No ascites. No bladder distention. EXTREMITIES: She has multiple deformities in joints with ankylosis hands, feet , knees. She has had multiple prior procedures with bilateral TKRs. NEUROLOGIC: Her cognitive function is stable and she is oriented, follows commands. Good recollection. LABORATORY DATA: White cell count is down from 23,000 to 12,000, hemoglobin 8.7 , platelets 185,000. Sodium 139, creatinine 0.63. AST 59, ALT 112 with albumin 3.0. Urinalysis greater than 50 wbc's. Microbiology with Klebsiella pneumoniae 2/2 sets of blood cultures surprisingly with urias-susceptible phenotype. She also had a urine culture with E. coli, but did more resistance noted. ASSESSMENT: Protracted rheumatoid arthritis with severe ankylosis of recurrent nephrolithiasis with staghorn calculi, status post laser lithotripsy with recurrence, multiple stents, and recurrent urinary tract infections. DISCUSSION: Patient has a recurrence of the same issue. The Klebsiella is probably part of the upper tract colonizers. No resistant pathogens at this time noted. Again, looks like in the past, patient has had declined any intervention. She now appears to have second thoughts may want to consider Urology reevaluation. In the meantime, we will continue treating with Rocephin eventually transitioned to oral quinolone for discharge planning. Treat for at least 4 weeks and then transitioned to suppressive regimen, which could be with third generation oral cephalosporin or Bactrim or a low-dose quinolone. If she decides to accept further urological intervention, then she would need laser lithotripsy and coverage with antimicrobials along the procedure dates. She probably would then require replacement of the stent as well. SHAD
[2017-10-27 05:46] LABS: #Eosinphils 0.2 thou/uL (0.0-0.7); #Monocytes 0.5 thou/uL (0.11-0.59); #Neutrophils 7.1 thou/uL (1.40-6.50); %Eosinophils 2.6 % (0.0-10.0); %Lymphocytes 11.2 % (21.0-51.0); %Monocytes 5.8 % (0.0-10.0); %Neutrophils 80.4 % (42.0-75.0); Hemoglobin 9.4 g/dL (12.0-16.0); Mean Corpuscular HGB CONC 30.7 g/dL (32.0-36.0); Mean Corpuscular Hemoglobin 27.9 pg (27.0-31.0); Mean Corpuscular Volume 91.1 fl (81.0-99.0); Mean Platelet Volume 6.3 fL (7.4-10.4); Platelet Count 193 thou/uL (130-400); RBC Distribution Width 13.8 % (11.5-14.5); Red Blood Cell (RBC) Count 3.37 mill/uL (4.20-5.40); White Blood Cell (WBC) Count 8.9 thou/uL (4.8-10.8)
[2017-10-27 05:50] LABS: Anion Gap 9 mmol/L (10-20); BUN (Urea Nitrogen) 7 mg/dL (9.8-20.1); Calc. Creatinine Clearance 67 mL/min (70-130); Calcium 8.5 mg/dL (7.8-10.44); Carbon Dioxide 25 mmol/L (23-31); Chloride 111 mmol/L (98-107); Estimated GFR-MDRD Greater than 90; Glucose 86 mg/dL (83-110); Potassium 3.5 mmol/L (3.5-5.1); Sodium 141 mmol/L (136-145)
[2017-10-27] MEDS: Sodium Chloride 0.9% 1,000 ML IV SCH ×3 (05:50→12:15)
--- NOTE | 2017-10-27 07:45 | PDOC.PN ---
- Subjective Encounter Start Date: 10/26/17 Encounter Start Time: 16:00 Patient seen and examined on 10/26. Overall feels better. No fever/chills. No new complaints. No overnight events - Objective Resuscitation Status: Resuscitation Status DNR:Do Not Resuscitate MAR Reviewed: Yes Vital Signs & Weight: Vital Signs (12 hours) Temp Pulse Resp BP Pulse Ox 10/27/17 01:00 95 10/26/17 20:00 98.2 F 86 16 113/67 93 L Weight Weight 114 lb 11.2 oz I&O: 10/26/17 10/27/17 10/28/17 06:59 06:59 06:59 Intake Total 1620 1230 Output Total 1 Balance 1620 1229 Result Diagrams: 10/27/17 05:06 10/27/17 05:06 Phys Exam - Physical Examination Constitutional: NAD Respiratory: no wheezing, no rhonchi Cardiovascular: RRR, no rub Gastrointestinal: soft, non-tender, positive bowel sounds Musculoskeletal: no edema Dx/Plan (1) Sepsis with acute organ dysfunction Code(s): A41.9 - SEPSIS, UNSPECIFIED ORGANISM; R65.20 - SEVERE SEPSIS WITHOUT SEPTIC SHOCK Status: Acute (2) Bacteremia Code(s): R78.81 - BACTEREMIA Status: Acute Comment: Klebsiella (3) UTI (urinary tract infection) Status: Acute Comment: Complicated UTI due to renal calculi (4) Abnormal LFTs Code(s): R94.5 - ABNORMAL RESULTS OF LIVER FUNCTION STUDIES Status: Acute Comment: USG neg, Prob due to Sepsis (5) HTN (hypertension) Code(s): I10 - ESSENTIAL (PRIMARY) HYPERTENSION Status: Chronic (6) H/O rheumatoid arthritis Code(s): Z87.39 - PERSONAL HISTORY OF DISEASES OF THE MS SYS AND CONN TISS Status: Chronic Comment: on chronic steroids (7) Moderate protein-calorie malnutrition Code(s): E44.0 - MODERATE PROTEIN-CALORIE MALNUTRITION Status: Chronic (8) Other issues per H&P Status: Chronic - Plan PT/OT, DVT proph w/SCDs Change Atbx to Ceftriaxone -: Await ID input -: Consult Urology -: Cont current meds as below -: AM labs Review of Systems - Review of Systems Respiratory: negative: Cough, Dry, Shortness of Breath, Hemoptysis, SOB with Excertion, Pleuritic Pain, Sputum, Wheezing Cardiovascular: negative: chest pain, palpitations, orthopnea, paroxysmal nocturnal dyspnea, edema, light headedness, other - Medications/Allergies Allergies/Adverse Reactions: Allergies Allergy/AdvReac Type Severity Reaction Status Date / Time quinine Allergy Intermediate Verified 10/24/17 07:06 iodine Allergy Verified 10/25/17 01:21 shellfish derived Allergy Verified 10/24/17 07:06 Medications: Current Medications Acetaminophen (Tylenol) 650 mg PO Q4H PRN PRN Reason: Headache/Fever or Pain Last Admin: 10/24/17 15:43 Dose: 650 mg Hydrocodone Bitart/Acetaminophen ([place] 5/325) 1 tab PO Q4H PRN PRN Reason: Moderate Pain (4-6) Last Admin: 10/26/17 22:10 Dose: 1 tab Al Hydroxide/Mg Hydroxide (Maalox) 30 ml PO Q6H PRN PRN Reason: Heartburn or Indigestion Alprazolam (Xanax) 0.25 mg PO TID [facility] Last Admin: 10/26/17 22:10 Dose: 0.25 mg Amlodipine Besylate (Norvasc) 5 mg PO DAILY [facility] Last Admin: 10/26/17 08:53 Dose: 5 mg Artificial Tears (Tears Naturale) 0 drop EA EYE PRN PRN PRN Reason: Dry Eyes Carbamide Perox/Anhydrous Glycerin (Debrox 6.5% Otic) 5 drop EA EAR BID PRN PRN Reason: cerum impaction Docusate Sodium (Colace) 100 mg PO DAILY [facility] Last Admin: 10/26/17 08:54 Dose: 100 mg Enoxaparin Sodium (Lovenox) 40 mg SC 0900 [facility] Last Admin: 10/26/17 08:53 Dose: 40 mg Guaifenesin (Robitussin Sf) 200 mg PO Q4H PRN PRN Reason: Cough Hydralazine HCl (Apresoline) 10 mg SLOW IVP Q4H PRN PRN Reason: Systolic BP > 180 Sodium Chloride (Normal Saline 0.9%) 1,000 mls @ 75 mls/hr IV .[id number] [facility] Last Admin: 10/27/17 05:50 Dose: 1,000 mls Ceftriaxone Sodium 2 gm/ (Sodium Chloride) 100 mls @ 200 mls/hr IVPB 0900 [facility] Last Admin: 10/26/17 10:18 Dose: 100 mls Levothyroxine Sodium (Synthroid) 50 mcg PO DAILY [facility] Last Admin: 10/26/17 08:53 Dose: 50 mcg Loperamide HCl (Imodium) 2 mg PO PRN PRN PRN Reason: Diarrhea/Loose Stools Loratadine (Claritin) 10 mg PO DAILYPRN PRN PRN Reason: Sinus Symptoms Magnesium Hydroxide (Milk Of Magnesium) 30 ml PO DAILYPRN PRN PRN Reason: Constipation Meloxicam (Mobic) 15 mg PO DAILY [facility] Last Admin: 10/26/17 08:53 Dose: 15 mg Metoprolol Tartrate (Lopressor) 25 mg PO BID [facility] Last Admin: 10/26/17 22:10 Dose: 25 mg Mineral Oil/White Petrolatum (Eucerin Cream) 0 gm TOP BIDPRN PRN PRN Reason: Dry Skin Miscellaneous Medication (Pharmacy To Dose) 1 each IVPB ONE PRN PRN Reason: Pharmacy to dose Stop: 11/03/17 07:12 Ondansetron HCl (Zofran Odt) 4 mg PO Q6H PRN PRN Reason: Nausea/Vomiting Ondansetron HCl (Zofran) 4 mg IVP Q6H PRN PRN Reason: Nausea/Vomiting Pantoprazole Sodium (Protonix) 40 mg PO DAILY [facility] Last Admin: 10/26/17 08:54 Dose: 40 mg Phenol (Chloraseptic [place] 180 Ml Bot) 0 ml PO PRN PRN PRN Reason: Sore Throat Polyethylene Glycol (Miralax) 17 gm PO DAILY [facility] Last Admin: 10/26/17 08:58 Dose: Not Given Prednisone (Prednisone) 5 mg PO QAM[facility] Last Admin: 10/26/17 08:54 Dose: 5 mg Promethazine HCl (Phenergan) 25 mg PO Q6H PRN PRN Reason: Nausea/Vomiting Saccharomyces Boulardii (Florastor) 250 mg PO DAILY [facility] Last Admin: 10/26/17 08:53 Dose: 250 mg Senna (Senokot) 2 tab PO HSPRN PRN PRN Reason: Constipation Sodium Chloride (Flush - Normal Saline) 10 ml IVF Q12HR [facility] Last Admin: 10/26/17 22:11 Dose: Not Given Sodium Chloride (Flush - Normal Saline) 10 ml IVF PRN PRN PRN Reason: Saline Flush Sodium Chloride ([place] Nasal [place] 0.65%) 0 ml EA NARE QIDPRN PRN PRN Reason: Nasal Congestion Zolpidem Tartrate (Ambien) 5 mg PO HSPRN PRN PRN Reason: Insomnia
[2017-10-27] MEDS: Docusate 100 MG CAP PO SCH (08:25)
[2017-10-27] MEDS: ALPRAZolam 0.25 MG TAB PO SCH ×3 (08:25→19:52)
[2017-10-27] MEDS: Amlodipine 5 MG TAB PO SCH (08:25)
[2017-10-27] MEDS: Saccharomyces boulardii 250 MG CAP PO SCH (08:25)
[2017-10-27] MEDS: Meloxicam 15 MG TAB PO SCH (08:25)
[2017-10-27] MEDS: Metoprolol Tartrate 25 MG TAB PO SCH ×2 (08:25→19:52)
[2017-10-27] MEDS: Levothyroxine Sodium 50 MCG TAB PO SCH (08:25)
[2017-10-27] MEDS: predniSONE 5 MG TAB PO SCH (08:25)
[2017-10-27] MEDS: cefTRIAXone\\ROCEPHIN 2 GM in Sodium Chloride 0.9% 100 ML IVPB SCH (08:26)
[2017-10-27] MEDS: Polyethylene Glycol 3350 17 GM Packet PO SCH (08:26)
[2017-10-27] MEDS: Enoxaparin Sodium 40 MG/0.4 ML SYRINGE SC SCH (08:26)
[2017-10-27] MEDS: HYDROcodone/Acetaminophen 5/325 mg Tablet PO PRN ×2 (08:26→19:52)
--- NOTE | 2017-10-27 12:24 | RAD ---
PORTABLE CHEST: History: Shortness of breath. Comparison: 10-24-17 FINDINGS: Heart size is enlarged. There are atherosclerotic changes of the aorta. There are chronic lung change s seen without focal infiltrates. Right shoulder prostheses is present. Severe arthritic change of th e left shoulder noted. IMPRESSION: Cardiomegaly with chronic lung changes. POS: C
--- NOTE | 2017-10-27 19:49 | CON ---
DATE OF CONSULTATION: 10/27/2017 HISTORY OF PRESENT ILLNESS: This is an 82-year-old white female who was admitted on the 18 of this month, 3 days ago. She has a history of rheumatoid arthritis which she has had for over 20 years. She has also history of bilateral stones. She has had a number of urinary tract infections. She is a retirement patient. She is for the last 5 years. She has a retained ureteral stent and this is not a new finding. I think she has seen Dr. Becker and Dr. Verma related to that in t he past. She was admitted with chills. 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 She also has some problems with bladder po sitioning. She has got a probably kyphosis/scoliosis. A lot of her abdominal contents lay over to h er right side. Her left side of the abdomen is quite small in terms of its dimensions. She also has bilateral hip prostheses. To me it does not appear that she has any hydro. She does have some atro phy of that left kidney compared to the other. She has got a cystic lesion on the right side probabl y has a cyst. It does not appear that there is anything to suggest a renal abscess or perinephric ab scess or fluid collection. On microbiology and the urine grew out an E. coli. This was from a straight cath. Has some resistan ce to ampicillin-sulbactam to the quinolones to gentamicin and to Bactrim, sensitive to the third gen eration cephalosporins, Macrobid, piperacillin/tazobactam. She had blood cultures that actually grew out Klebsiella x2. This was pansensitive. Her white count when she came in was 23,000 and 8900 now . She had some anemia which I doubt is new. Her creatinine has been normal. As mentioned, the urin alysis had 11-20 red cells, greater than 50 white cells, 2+ bacteria. She had an Infectious Disease consult yesterday with Dr. Martinez. He felt that the Klebsiella may be p art of just the upper tract colonization that became blood borne. This is probably what was made her septic as she did have chills and the urine in the blood was infected with this, although it did not grow in the urinary tract. He is recommending 4 weeks of treatment with Rocephin and then switching over to a quinolone at time of discharge. She has had a chest x-ray that showed some cardiomegaly b ut it was otherwise unremarkable. She has seen Dr. Verma in the past and Dr. Capps in the past a nd Dr. Becker in the past. She has also seen Dr. Capps who was caring for when the stent was left in. I think Dr. Becker had cared for her in the past also for stones, but had gotten the s tents out, from the timely basis, this one apparently was left in a long time after Dr. Capps place d it and then Dr. Capps retired and then this became heavily calcified and it has been unable to do so easily because of her other health issues and her body habitus. I think she was actually made to contact with Dr. Silvana Morel up in the [facility] at [facility] and was told it would be diff icult to take care of the stones surgically, but that is probably only way that could be handled. PAST MEDICAL HISTORY: In addition to the recurrent stones and urinary tract infection, she has histo ry of rheumatoid arthritis. She has a history of hypothyroidism, hypertension, and because of her rh eumatoid arthritis, she has a lot of difficulty with ambulation and movement. She does not have anyt dwayne to suggest a neurogenic bladder. She has a bedside commode and still able to do that and has ne leticia had to have a Wiggins catheter apart from possible occasional visits to the hospital. PAST SURGICAL HISTORY: She has had hip replacement therapy and a cholecystectomy. IMPRESSION: Recent sepsis with Klebsiella organism that Infectious Disease felt is probably from the urinary tract, although the urinary tract only grew out an E. coli. The E. coli was highly resistan t and Klebsiella was not resistant at all. She is improved on her current antibiotics which are Roce phin. The question is, can anything done about the stones. I think looking at her CAT scan, it woul d be extremely difficult surgery with her body habitus and rheumatoid arthritis the fact that she is on steroids and her age. I will let Dr. Verma know of her admission as he saw her last fall and se e if he has any other thoughts on this, but this would not be an easy undertaking and it would requir e multiple procedures on both sides in order to free up the stones and the stent. I am not sure that something that would be able to be entertained to be done here if she desired to proceed that way or whether it would be better for her to seek tertiary center because of these other issues. Again, al l that Dr. Verma know of her admission. I have talked with her today. She is very pleasant lady. She understands that the risks involved and I am not sure she is to start treatment on the stones, a lthough it is unfortunate that she finds herself in this position currently.
--- NOTE | 2017-10-27 23:47 | PDOC.PN ---
- Subjective Encounter Start Date: 10/27/17 Encounter Start Time: 16:00 Patient seen and examined for Sepsis. No new complaints. Feels better. SOB earlier - improved. No overnight events - Objective Resuscitation Status: Resuscitation Status DNR:Do Not Resuscitate MAR Reviewed: Yes Vital Signs & Weight: Vital Signs (12 hours) Temp Pulse Resp BP Pulse Ox 10/27/17 19:31 97.9 F 99 18 136/84 99 Weight Weight 114 lb 11.2 oz I&O: 10/26/17 10/27/17 10/28/17 06:59 06:59 06:59 Intake Total 1620 1230 1440 Output Total 1 Balance 1620 1229 1440 Result Diagrams: 10/27/17 05:06 10/27/17 05:06 Additional Labs: Microbiology 10/24/17 04:36 Venous blood - Left Arm Blood Culture - Final Klebsiella pneumoniae ssp pneu 10/24/17 04:14 Venous blood - Left Foot Blood Culture - Final Klebsiella pneumoniae ssp pneu 10/24/17 03:45 Urine Straight Catheter Urine Culture - Final Escherichia coli Radiology Reviewed by me: Yes (CXR - negative) Phys Exam - Physical Examination Constitutional: NAD Respiratory: no wheezing, no rhonchi Cardiovascular: RRR, no rub Gastrointestinal: soft, non-tender, positive bowel sounds Musculoskeletal: no edema Neurological: moves all 4 limbs Dx/Plan (1) Sepsis with acute organ dysfunction Code(s): A41.9 - SEPSIS, UNSPECIFIED ORGANISM; R65.20 - SEVERE SEPSIS WITHOUT SEPTIC SHOCK Status: Acute (2) Bacteremia Code(s): R78.81 - BACTEREMIA Status: Acute Comment: Klebsiella (3) UTI (urinary tract infection) Status: Acute Comment: Complicated UTI due to renal calculi (4) Abnormal LFTs Code(s): R94.5 - ABNORMAL RESULTS OF LIVER FUNCTION STUDIES Status: Acute Comment: USG neg, Prob due to Sepsis (5) HTN (hypertension) Code(s): I10 - ESSENTIAL (PRIMARY) HYPERTENSION Status: Chronic (6) H/O rheumatoid arthritis Code(s): Z87.39 - PERSONAL HISTORY OF DISEASES OF THE MS SYS AND CONN TISS Status: Chronic Comment: on chronic steroids (7) Moderate protein-calorie malnutrition Code(s): E44.0 - MODERATE PROTEIN-CALORIE MALNUTRITION Status: Chronic (8) Other issues per H&P Status: Chronic - Plan continue antibiotics, PT/OT, DVT proph w/SCDs Cont Atbx -: Await ID/Urology input -: Cont current meds as below -: Reduce IVF to 50 ml/hr Review of Systems - Review of Systems ENT: negative: Ear Pain, Ear Discharge, Nose Pain, Nose Discharge, Nose Congestion, Mouth Pain, Mouth Swelling, Throat Pain, Throat Swelling, Other Respiratory: negative: Cough, Dry, Shortness of Breath, Hemoptysis, SOB with Excertion, Pleuritic Pain, Sputum, Wheezing Cardiovascular: negative: chest pain, palpitations, orthopnea, paroxysmal nocturnal dyspnea, edema, light headedness, other - Medications/Allergies Allergies/Adverse Reactions: Allergies Allergy/AdvReac Type Severity Reaction Status Date / Time quinine Allergy Intermediate Verified 10/24/17 07:06 iodine Allergy Verified 10/25/17 01:21 shellfish derived Allergy Verified 10/24/17 07:06 Medications: Current Medications Acetaminophen (Tylenol) 650 mg PO Q4H PRN PRN Reason: Headache/Fever or Pain Last Admin: 10/24/17 15:43 Dose: 650 mg Hydrocodone Bitart/Acetaminophen ([place] 5/325) 1 tab PO Q4H PRN PRN Reason: Moderate Pain (4-6) Last Admin: 10/27/17 19:52 Dose: 1 tab Al Hydroxide/Mg Hydroxide (Maalox) 30 ml PO Q6H PRN PRN Reason: Heartburn or Indigestion Alprazolam (Xanax) 0.25 mg PO TID [facility] Last Admin: 10/27/17 19:52 Dose: 0.25 mg Amlodipine Besylate (Norvasc) 5 mg PO DAILY [facility] Last Admin: 10/27/17 08:25 Dose: 5 mg Artificial Tears (Tears Naturale) 0 drop EA EYE PRN PRN PRN Reason: Dry Eyes Carbamide Perox/Anhydrous Glycerin (Debrox 6.5% Otic) 5 drop EA EAR BID PRN PRN Reason: cerum impaction Docusate Sodium (Colace) 100 mg PO DAILY [facility] Last Admin: 10/27/17 08:25 Dose: 100 mg Enoxaparin Sodium (Lovenox) 40 mg SC 0900 [facility] Last Admin: 10/27/17 08:26 Dose: 40 mg Guaifenesin (Robitussin Sf) 200 mg PO Q4H PRN PRN Reason: Cough Hydralazine HCl (Apresoline) 10 mg SLOW IVP Q4H PRN PRN Reason: Systolic BP > 180 Ceftriaxone Sodium 2 gm/ (Sodium Chloride) 100 mls @ 200 mls/hr IVPB 0900 [facility] Last Admin: 10/27/17 08:26 Dose: 100 mls Sodium Chloride (Normal Saline 0.9%) 1,000 mls @ 50 mls/hr IV .Q20H [facility] Last Admin: 10/27/17 12:15 Dose: Not Given Levothyroxine Sodium (Synthroid) 50 mcg PO DAILY [facility] Last Admin: 10/27/17 08:25 Dose: 50 mcg Loperamide HCl (Imodium) 2 mg PO PRN PRN PRN Reason: Diarrhea/Loose Stools Loratadine (Claritin) 10 mg PO DAILYPRN PRN PRN Reason: Sinus Symptoms Magnesium Hydroxide (Milk Of Magnesium) 30 ml PO DAILYPRN PRN PRN Reason: Constipation Meloxicam (Mobic) 15 mg PO DAILY [facility] Last Admin: 10/27/17 08:25 Dose: 15 mg Metoprolol Tartrate (Lopressor) 25 mg PO BID [facility] Last Admin: 10/27/17 19:52 Dose: 25 mg Mineral Oil/White Petrolatum (Eucerin Cream) 0 gm TOP BIDPRN PRN PRN Reason: Dry Skin Miscellaneous Medication (Pharmacy To Dose) 1 each IVPB ONE PRN PRN Reason: Pharmacy to dose Stop: 11/03/17 07:12 Ondansetron HCl (Zofran Odt) 4 mg PO Q6H PRN PRN Reason: Nausea/Vomiting Ondansetron HCl (Zofran) 4 mg IVP Q6H PRN PRN Reason: Nausea/Vomiting Pantoprazole Sodium (Protonix) 40 mg PO DAILY [facility] Last Admin: 10/27/17 08:25 Dose: 40 mg Phenol (Chloraseptic [place] 180 Ml Bot) 0 ml PO PRN PRN PRN Reason: Sore Throat Polyethylene Glycol (Miralax) 17 gm PO DAILY [facility] Last Admin: 10/27/17 08:26 Dose: 17 gm Prednisone (Prednisone) 5 mg PO QAM[facility] Last Admin: 10/27/17 08:25 Dose: 5 mg Promethazine HCl (Phenergan) 25 mg PO Q6H PRN PRN Reason: Nausea/Vomiting Saccharomyces Boulardii (Florastor) 250 mg PO DAILY [facility] Last Admin: 10/27/17 08:25 Dose: 250 mg Senna (Senokot) 2 tab PO HSPRN PRN PRN Reason: Constipation Sodium Chloride (Flush - Normal Saline) 10 ml IVF Q12HR [facility] Last Admin: 10/27/17 21:50 Dose: Not Given Sodium Chloride (Flush - Normal Saline) 10 ml IVF PRN PRN PRN Reason: Saline Flush Sodium Chloride ([place] Nasal [place] 0.65%) 0 ml EA NARE QIDPRN PRN PRN Reason: Nasal Congestion Zolpidem Tartrate (Ambien) 5 mg PO HSPRN PRN PRN Reason: Insomnia
[2017-10-28] MEDS: HYDROcodone/Acetaminophen 5/325 mg Tablet PO PRN ×3 (05:14→22:02)
[2017-10-28] MEDS: Sodium Chloride 0.9% 1,000 ML IV SCH (05:19)
[2017-10-28] MEDS: Levothyroxine Sodium 50 MCG TAB PO SCH (08:15)
[2017-10-28] MEDS: Saccharomyces boulardii 250 MG CAP PO SCH (08:15)
[2017-10-28] MEDS: predniSONE 5 MG TAB PO SCH (08:15)
[2017-10-28] MEDS: Metoprolol Tartrate 25 MG TAB PO SCH ×2 (08:15→22:01)
[2017-10-28] MEDS: Meloxicam 15 MG TAB PO SCH (08:16)
[2017-10-28] MEDS: Docusate 100 MG CAP PO SCH (08:16)
[2017-10-28] MEDS: cefTRIAXone\\ROCEPHIN 2 GM in Sodium Chloride 0.9% 100 ML IVPB SCH (08:16)
[2017-10-28] MEDS: Enoxaparin Sodium 30 MG/0.3 ML SYRINGE SC SCH (08:16)
[2017-10-28] MEDS: Polyethylene Glycol 3350 17 GM Packet PO SCH (08:16)
[2017-10-28] MEDS: Amlodipine 5 MG TAB PO SCH (08:16)
[2017-10-28] MEDS: ALPRAZolam 0.25 MG TAB PO SCH ×3 (08:16→22:01)
--- NOTE | 2017-10-28 15:07 | PDOC.PN ---
- Subjective Encounter Start Date: 10/28/17 Encounter Start Time: 15:06 Subjective: feels better. no new complaints -: no dysuria/hesitancy,blood in urine - Objective Resuscitation Status: Resuscitation Status DNR:Do Not Resuscitate MAR Reviewed: Yes Vital Signs & Weight: Vital Signs (12 hours) Temp Pulse Resp BP BP Pulse Ox 10/28/17 08:16 94 10/28/17 08:00 97.9 F 94 18 94 L 10/28/17 07:42 97.9 F 94 18 152/74 H 92 L 10/28/17 07:34 97.9 F 94 18 152/74 H 94 L Weight Weight 114 lb 11.2 oz I&O: 10/27/17 10/28/17 10/29/17 06:59 06:59 06:59 Intake Total 1230 2440 960 Output Total 1 Balance 1229 2440 960 Result Diagrams: 10/27/17 05:06 10/27/17 05:06 Additional Labs: Microbiology 10/24/17 04:36 Venous blood - Left Arm Blood Culture - Final Klebsiella pneumoniae ssp pneu 10/24/17 04:14 Venous blood - Left Foot Blood Culture - Final Klebsiella pneumoniae ssp pneu 10/24/17 03:45 Urine Straight Catheter Urine Culture - Final Escherichia coli Laboratory Tests 10/24/17 10/24/17 10/25/17 04:14 04:14 05:18 WBC 23.8 H AST 153 H 59 H ALT 192 H 112 H Alkaline Phosphatase 183 H 146 10/25/17 10/26/17 10/27/17 05:18 04:34 05:06 WBC 16.6 H 12.3 H 8.9 AST ALT Alkaline Phosphatase LABS REVIEWED Phys Exam - Physical Examination Constitutional: NAD HEENT: PERRLA, moist MMs, sclera anicteric, oral pharynx no lesions Neck: no nodes, no JVD, supple, full ROM Respiratory: no wheezing, no rales, no rhonchi, clear to auscultation bilateral Cardiovascular: RRR, no significant murmur, no rub Gastrointestinal: soft, non-tender, no distention, positive bowel sounds Musculoskeletal: no edema, pulses present various bony deformities in fingers from RA Neurological: non-focal, normal sensation, moves all 4 limbs Psychiatric: normal affect, A&O x 3 Skin: no rash Dx/Plan (1) Sepsis with acute organ dysfunction Code(s): A41.9 - SEPSIS, UNSPECIFIED ORGANISM; R65.20 - SEVERE SEPSIS WITHOUT SEPTIC SHOCK Status: Acute (2) Bacteremia Code(s): R78.81 - BACTEREMIA Status: Acute Comment: Klebsiella (3) UTI (urinary tract infection) Status: Acute Comment: Complicated UTI due to renal calculi.E.coli (4) Abnormal LFTs Code(s): R94.5 - ABNORMAL RESULTS OF LIVER FUNCTION STUDIES Status: Acute Comment: USG neg, Prob due to Sepsis.improving (5) HTN (hypertension) Code(s): I10 - ESSENTIAL (PRIMARY) HYPERTENSION Status: Chronic (6) Moderate protein-calorie malnutrition Code(s): E44.0 - MODERATE PROTEIN-CALORIE MALNUTRITION Status: Chronic (7) Chronic anemia Code(s): D64.9 - ANEMIA, UNSPECIFIED Status: Chronic (8) H/O rheumatoid arthritis Code(s): Z87.39 - PERSONAL HISTORY OF DISEASES OF THE MS SYS AND CONN TISS Status: Chronic Comment: on chronic steroids (9) Staghorn calculus Code(s): N20.0 - CALCULUS OF KIDNEY Status: Chronic Comment: bilateral - Plan continue antibiotics, PT/OT, DVT proph w/SCDs Cont Rocephin.both klebseillea and E.coli sensistive to it -: urology follow up.pt unsure if she wants lithotripsy or not -: clinically better. WBC trending towards NL. -: ID following.will follow recs for final ABx selection -: HD stable. am labs * . Review of Systems - Review of Systems Constitutional: weakness, malaise. negative: fever, chills, sweats, other ENT: negative: Ear Pain, Ear Discharge, Nose Pain, Nose Discharge, Nose Congestion, Mouth Pain, Mouth Swelling, Throat Pain, Throat Swelling, Other Cardiovascular: negative: chest pain, palpitations, orthopnea, paroxysmal nocturnal dyspnea, edema, light headedness, other Gastrointestinal: negative: Nausea, Vomiting, Abdominal Pain, Diarrhea, Constipation, Melena, Hematochezia, Other Genitourinary: negative: Dysuria, Frequency, Incontinence, Hematuria, Retention , Other Musculoskeletal: negative: Neck Pain, Shoulder Pain, Arm Pain, Back Pain, Hand Pain, Leg Pain, Foot Pain, Other Skin: negative: Rash, Lesions, Fernandez, Bruising, Other Neurological: negative: Weakness, Numbness, Incoordination, Change in Speech, Confusion, Seizures, Other - Medications/Allergies Allergies/Adverse Reactions: Allergies Allergy/AdvReac Type Severity Reaction Status Date / Time quinine Allergy Intermediate Verified 10/24/17 07:06 iodine Allergy Verified 10/25/17 01:21 shellfish derived Allergy Verified 10/24/17 07:06 Medications: Current Medications Acetaminophen (Tylenol) 650 mg PO Q4H PRN PRN Reason: Headache/Fever or Pain Last Admin: 10/24/17 15:43 Dose: 650 mg Hydrocodone Bitart/Acetaminophen ([place] 5/325) 1 tab PO Q4H PRN PRN Reason: Moderate Pain (4-6) Last Admin: 10/28/17 05:14 Dose: 1 tab Al Hydroxide/Mg Hydroxide (Maalox) 30 ml PO Q6H PRN PRN Reason: Heartburn or Indigestion Alprazolam (Xanax) 0.25 mg PO TID [facility] Last Admin: 10/28/17 08:16 Dose: 0.25 mg Amlodipine Besylate (Norvasc) 5 mg PO DAILY [facility] Last Admin: 10/28/17 08:16 Dose: 5 mg Artificial Tears (Tears Naturale) 0 drop EA EYE PRN PRN PRN Reason: Dry Eyes Carbamide Perox/Anhydrous Glycerin (Debrox 6.5% Otic) 5 drop EA EAR BID PRN PRN Reason: cerum impaction Docusate Sodium (Colace) 100 mg PO DAILY [facility] Last Admin: 10/28/17 08:16 Dose: 100 mg Enoxaparin Sodium (Lovenox) 30 mg SC 0900 [facility] Last Admin: 10/28/17 08:16 Dose: 30 mg Guaifenesin (Robitussin Sf) 200 mg PO Q4H PRN PRN Reason: Cough Hydralazine HCl (Apresoline) 10 mg SLOW IVP Q4H PRN PRN Reason: Systolic BP > 180 Ceftriaxone Sodium 2 gm/ (Sodium Chloride) 100 mls @ 200 mls/hr IVPB 0900 [facility] Last Admin: 10/28/17 08:16 Dose: 100 mls Sodium Chloride (Normal Saline 0.9%) 1,000 mls @ 50 mls/hr IV .Q20H [facility] Last Admin: 10/28/17 05:19 Dose: 1,000 mls Levothyroxine Sodium (Synthroid) 50 mcg PO DAILY [facility] Last Admin: 10/28/17 08:15 Dose: 50 mcg Loperamide HCl (Imodium) 2 mg PO PRN PRN PRN Reason: Diarrhea/Loose Stools Loratadine (Claritin) 10 mg PO DAILYPRN PRN PRN Reason: Sinus Symptoms Magnesium Hydroxide (Milk Of Magnesium) 30 ml PO DAILYPRN PRN PRN Reason: Constipation Meloxicam (Mobic) 15 mg PO DAILY [facility] Last Admin: 10/28/17 08:16 Dose: 15 mg Metoprolol Tartrate (Lopressor) 25 mg PO BID [facility] Last Admin: 10/28/17 08:15 Dose: 25 mg Mineral Oil/White Petrolatum (Eucerin Cream) 0 gm TOP BIDPRN PRN PRN Reason: Dry Skin Miscellaneous Medication (Pharmacy To Dose) 1 each IVPB ONE PRN PRN Reason: Pharmacy to dose Stop: 11/03/17 07:12 Ondansetron HCl (Zofran Odt) 4 mg PO Q6H PRN PRN Reason: Nausea/Vomiting Ondansetron HCl (Zofran) 4 mg IVP Q6H PRN PRN Reason: Nausea/Vomiting Pantoprazole Sodium (Protonix) 40 mg PO DAILY [facility] Last Admin: 10/28/17 08:15 Dose: 40 mg Phenol (Chloraseptic [place] 180 Ml Bot) 0 ml PO PRN PRN PRN Reason: Sore Throat Polyethylene Glycol (Miralax) 17 gm PO DAILY [facility] Last Admin: 10/28/17 08:16 Dose: 17 gm Prednisone (Prednisone) 5 mg PO QAM[facility] Last Admin: 10/28/17 08:15 Dose: 5 mg Promethazine HCl (Phenergan) 25 mg PO Q6H PRN PRN Reason: Nausea/Vomiting Saccharomyces Boulardii (Florastor) 250 mg PO DAILY [facility] Last Admin: 10/28/17 08:15 Dose: 250 mg Senna (Senokot) 2 tab PO HSPRN PRN PRN Reason: Constipation Sodium Chloride (Flush - Normal Saline) 10 ml IVF Q12HR [facility] Last Admin: 10/28/17 08:17 Dose: Not Given Sodium Chloride (Flush - Normal Saline) 10 ml IVF PRN PRN PRN Reason: Saline Flush Sodium Chloride ([place] Nasal [place] 0.65%) 0 ml EA NARE QIDPRN PRN PRN Reason: Nasal Congestion Zolpidem Tartrate (Ambien) 5 mg PO HSPRN PRN PRN Reason: Insomnia
[2017-10-29] MEDS: Sodium Chloride 0.9% 1,000 ML IV SCH (04:05)
[2017-10-29 04:56] LABS: Anion Gap 11 mmol/L (10-20); BUN (Urea Nitrogen) Less than 4 mg/dL (9.8-20.1); Calc. Creatinine Clearance 76 mL/min (70-130); Calcium 9.3 mg/dL (7.8-10.44); Carbon Dioxide 29 mmol/L (23-31); Chloride 106 mmol/L (98-107); Estimated GFR-MDRD Greater than 90; Glucose 85 mg/dL (83-110); Potassium 3.4 mmol/L (3.5-5.1); Sodium 143 mmol/L (136-145)
[2017-10-29] MEDS: HYDROcodone/Acetaminophen 5/325 mg Tablet PO PRN ×3 (05:15→21:22)
[2017-10-29] MEDS: ALPRAZolam 0.25 MG TAB PO SCH ×3 (08:02→21:16)
[2017-10-29] MEDS: Saccharomyces boulardii 250 MG CAP PO SCH (08:03)
[2017-10-29] MEDS: Levothyroxine Sodium 50 MCG TAB PO SCH (08:03)
[2017-10-29] MEDS: Amlodipine 5 MG TAB PO SCH (08:03)
[2017-10-29] MEDS: predniSONE 5 MG TAB PO SCH (08:03)
[2017-10-29] MEDS: Metoprolol Tartrate 25 MG TAB PO SCH ×2 (08:03→21:16)
[2017-10-29] MEDS: Docusate 100 MG CAP PO SCH (08:04)
[2017-10-29] MEDS: Meloxicam 15 MG TAB PO SCH (08:04)
[2017-10-29] MEDS: cefTRIAXone\\ROCEPHIN 2 GM in Sodium Chloride 0.9% 100 ML IVPB SCH (08:04)
[2017-10-29] MEDS: Polyethylene Glycol 3350 17 GM Packet PO SCH (08:05)
[2017-10-29] MEDS ORDERED: Potassium Chloride 40 MEQ in Sodium Chloride 0.9% 250 ML 250 ML IVPB SCH (10:45)
[2017-10-29] MEDS: Enoxaparin Sodium 30 MG/0.3 ML SYRINGE SC SCH (11:26)
--- NOTE | 2017-10-29 14:38 | EKG ---
Test Reason : Blood Pressure : / mmHG Vent. Rate : 101 BPM Atrial Rate : 101 BPM P-R Int : 148 ms QRS Dur : 082 ms QT Int : 340 ms P-R-T Axes : -19 -53 036 degrees QTc Int : 440 ms Sinus tachycardia Left axis deviation Abnormal ECG Confirmed by RILEY SHRESTHA ([id number]), society editor SABINO GILES ([id number]) on 10/29/2017 2:37:38 PM Referred By: Confirmed By:RILEY SHRESTHA
--- NOTE | 2017-10-29 14:58 | PDOC.PN ---
- Subjective Encounter Start Date: 10/29/17 Encounter Start Time: 14:57 Subjective: feels well. no new complaints except some rib cage pain which resolved -: C/O BURNING AND ITICHING IN PELVIC AREA - Objective Resuscitation Status: Resuscitation Status DNR:Do Not Resuscitate MAR Reviewed: Yes Vital Signs & Weight: Vital Signs (12 hours) Temp Pulse Resp BP BP Pulse Ox 10/29/17 12:00 98.8 F 92 18 157/80 H 94 L 10/29/17 10:58 89 10/29/17 08:16 98 F 118 H 20 177/75 H 96 10/29/17 08:03 118 H 177/75 H 10/29/17 08:00 98 F 118 H 20 96 Weight Weight 114 lb 11.2 oz I&O: 10/28/17 10/29/17 10/30/17 06:59 06:59 06:59 Intake Total 2440 2480 Balance 2440 2480 Result Diagrams: 10/27/17 05:06 10/29/17 04:07 Additional Labs: Microbiology 10/24/17 04:36 Venous blood - Left Arm Blood Culture - Final Klebsiella pneumoniae ssp pneu 10/24/17 04:14 Venous blood - Left Foot Blood Culture - Final Klebsiella pneumoniae ssp pneu 10/24/17 03:45 Urine Straight Catheter Urine Culture - Final Escherichia coli LABS REVIEWED Phys Exam - Physical Examination Constitutional: NAD HEENT: PERRLA, moist MMs, sclera anicteric, oral pharynx no lesions Neck: no nodes, no JVD, supple, full ROM Respiratory: no wheezing, no rales, no rhonchi, clear to auscultation bilateral Cardiovascular: RRR, no significant murmur Gastrointestinal: soft, non-tender, no distention, positive bowel sounds Musculoskeletal: no edema, pulses present Neurological: non-focal, normal sensation, moves all 4 limbs Psychiatric: normal affect, A&O x 3 Skin: no rash Dx/Plan (1) Sepsis with acute organ dysfunction Code(s): A41.9 - SEPSIS, UNSPECIFIED ORGANISM; R65.20 - SEVERE SEPSIS WITHOUT SEPTIC SHOCK Status: Acute (2) Bacteremia Code(s): R78.81 - BACTEREMIA Status: Acute Comment: Klebsiella (3) UTI (urinary tract infection) Status: Acute Comment: Complicated UTI due to renal calculi.E.coli (4) Abnormal LFTs Code(s): R94.5 - ABNORMAL RESULTS OF LIVER FUNCTION STUDIES Status: Acute Comment: USG neg, Prob due to Sepsis.improving (5) HTN (hypertension) Code(s): I10 - ESSENTIAL (PRIMARY) HYPERTENSION Status: Chronic (6) Moderate protein-calorie malnutrition Code(s): E44.0 - MODERATE PROTEIN-CALORIE MALNUTRITION Status: Chronic (7) Chronic anemia Code(s): D64.9 - ANEMIA, UNSPECIFIED Status: Chronic (8) H/O rheumatoid arthritis Code(s): Z87.39 - PERSONAL HISTORY OF DISEASES OF THE MS SYS AND CONN TISS Status: Chronic Comment: on chronic steroids (9) Staghorn calculus Code(s): N20.0 - CALCULUS OF KIDNEY Status: Chronic Comment: bilateral - Plan continue antibiotics, PT/OT, healthcare social worker, DVT proph w/SCDs awaiting final recs from Urology.pt unsure about sx for staghorn calculus -: cont IV ABx. ID rec srequested for final choice -: add Diflucan and Topical Nystatin powder -: DC back [facility] tomorrow if feels well -: HD stable * . Review of Systems - Review of Systems Constitutional: weakness ENT: negative: Ear Pain, Ear Discharge, Nose Pain, Nose Discharge, Nose Congestion, Mouth Pain, Mouth Swelling, Throat Pain, Throat Swelling, Other Respiratory: negative: Cough, Dry, Shortness of Breath, Hemoptysis, SOB with Excertion, Pleuritic Pain, Sputum, Wheezing Cardiovascular: negative: chest pain, palpitations, orthopnea, paroxysmal nocturnal dyspnea, edema, light headedness, other Gastrointestinal: negative: Nausea, Vomiting, Abdominal Pain, Diarrhea, Constipation, Melena, Hematochezia, Other Genitourinary: negative: Dysuria, Frequency, Incontinence, Hematuria, Retention , Other Musculoskeletal: Back Pain, Hand Pain. negative: Neck Pain, Shoulder Pain, Arm Pain, Leg Pain, Foot Pain, Other Skin: negative: Rash, Lesions, Fernandez, Bruising, Other Neurological: negative: Weakness, Numbness, Incoordination, Change in Speech, Confusion, Seizures, Other - Medications/Allergies Allergies/Adverse Reactions: Allergies Allergy/AdvReac Type Severity Reaction Status Date / Time quinine Allergy Intermediate Verified 10/24/17 07:06 iodine Allergy Verified 10/25/17 01:21 shellfish derived Allergy Verified 10/24/17 07:06 Medications: Current Medications Acetaminophen (Tylenol) 650 mg PO Q4H PRN PRN Reason: Headache/Fever or Pain Last Admin: 10/24/17 15:43 Dose: 650 mg Hydrocodone Bitart/Acetaminophen ([place] 5/325) 1 tab PO Q4H PRN PRN Reason: Moderate Pain (4-6) Last Admin: 10/29/17 14:09 Dose: 1 tab Al Hydroxide/Mg Hydroxide (Maalox) 30 ml PO Q6H PRN PRN Reason: Heartburn or Indigestion Alprazolam (Xanax) 0.25 mg PO TID [facility] Last Admin: 10/29/17 14:08 Dose: 0.25 mg Amlodipine Besylate (Norvasc) 5 mg PO DAILY [facility] Last Admin: 10/29/17 08:03 Dose: 5 mg Artificial Tears (Tears Naturale) 0 drop EA EYE PRN PRN PRN Reason: Dry Eyes Carbamide Perox/Anhydrous Glycerin (Debrox 6.5% Otic) 5 drop EA EAR BID PRN PRN Reason: cerum impaction Docusate Sodium (Colace) 100 mg PO DAILY [facility] Last Admin: 10/29/17 08:04 Dose: Not Given Enoxaparin Sodium (Lovenox) 30 mg SC 0900 [facility] Last Admin: 10/29/17 11:26 Dose: 30 mg Guaifenesin (Robitussin Sf) 200 mg PO Q4H PRN PRN Reason: Cough Hydralazine HCl (Apresoline) 10 mg SLOW IVP Q4H PRN PRN Reason: Systolic BP > 180 Ceftriaxone Sodium 2 gm/ (Sodium Chloride) 100 mls @ 200 mls/hr IVPB 0900 [facility] Last Admin: 10/29/17 08:04 Dose: 100 mls Levothyroxine Sodium (Synthroid) 50 mcg PO DAILY [facility] Last Admin: 10/29/17 08:03 Dose: 50 mcg Loperamide HCl (Imodium) 2 mg PO PRN PRN PRN Reason: Diarrhea/Loose Stools Loratadine (Claritin) 10 mg PO DAILYPRN PRN PRN Reason: Sinus Symptoms Magnesium Hydroxide (Milk Of Magnesium) 30 ml PO DAILYPRN PRN PRN Reason: Constipation Meloxicam (Mobic) 15 mg PO DAILY [facility] Last Admin: 10/29/17 08:04 Dose: 15 mg Metoprolol Tartrate (Lopressor) 25 mg PO BID [facility] Last Admin: 10/29/17 08:03 Dose: 25 mg Mineral Oil/White Petrolatum (Eucerin Cream) 0 gm TOP BIDPRN PRN PRN Reason: Dry Skin Miscellaneous Medication (Pharmacy To Dose) 1 each IVPB ONE PRN PRN Reason: Pharmacy to dose Stop: 11/03/17 07:12 Ondansetron HCl (Zofran Odt) 4 mg PO Q6H PRN PRN Reason: Nausea/Vomiting Ondansetron HCl (Zofran) 4 mg IVP Q6H PRN PRN Reason: Nausea/Vomiting Pantoprazole Sodium (Protonix) 40 mg PO DAILY [facility] Last Admin: 10/29/17 08:03 Dose: 40 mg Phenol (Chloraseptic [place] 180 Ml Bot) 0 ml PO PRN PRN PRN Reason: Sore Throat Polyethylene Glycol (Miralax) 17 gm PO DAILY [facility] Last Admin: 10/29/17 08:05 Dose: Not Given Prednisone (Prednisone) 5 mg PO QAM[facility] Last Admin: 10/29/17 08:03 Dose: 5 mg Promethazine HCl (Phenergan) 25 mg PO Q6H PRN PRN Reason: Nausea/Vomiting Saccharomyces Boulardii (Florastor) 250 mg PO DAILY [facility] Last Admin: 10/29/17 08:03 Dose: 250 mg Senna (Senokot) 2 tab PO HSPRN PRN PRN Reason: Constipation Sodium Chloride (Flush - Normal Saline) 10 ml IVF Q12HR [facility] Last Admin: 10/29/17 08:05 Dose: Not Given Sodium Chloride (Flush - Normal Saline) 10 ml IVF PRN PRN PRN Reason: Saline Flush Sodium Chloride ([place] Nasal [place] 0.65%) 0 ml EA NARE QIDPRN PRN PRN Reason: Nasal Congestion Zolpidem Tartrate (Ambien) 5 mg PO HSPRN PRN PRN Reason: Insomnia
[2017-10-29] MEDS: Fluconazole 100 MG TAB PO SCH (15:34)
[2017-10-29] MEDS: Nystatin Powder 15 GM BOT TOP SCH (21:16)
[2017-10-30 04:55] LABS: Anion Gap 9 mmol/L (10-20); BUN (Urea Nitrogen) 6 mg/dL (9.8-20.1); Calc. Creatinine Clearance 70 mL/min (70-130); Calcium 9.4 mg/dL (7.8-10.44); Carbon Dioxide 30 mmol/L (23-31); Chloride 105 mmol/L (98-107); Estimated GFR-MDRD Greater than 90; Glucose 89 mg/dL (83-110); Sodium 140 mmol/L (136-145)
[2017-10-30] MEDS: HYDROcodone/Acetaminophen 5/325 mg Tablet PO PRN ×3 (06:50→17:46)
[2017-10-30 08:00] VITALS: TEMP 98.7
[2017-10-30] MEDS: Amlodipine 5 MG TAB PO SCH (08:17)
[2017-10-30] MEDS: Docusate 100 MG CAP PO SCH (08:18)
[2017-10-30] MEDS: Levothyroxine Sodium 50 MCG TAB PO SCH (08:18)
[2017-10-30] MEDS: Saccharomyces boulardii 250 MG CAP PO SCH (08:18)
[2017-10-30] MEDS: predniSONE 5 MG TAB PO SCH (08:19)
[2017-10-30] MEDS: Metoprolol Tartrate 25 MG TAB PO SCH ×2 (08:20→17:47)
[2017-10-30] MEDS: ALPRAZolam 0.25 MG TAB PO SCH ×2 (08:20→14:00)
[2017-10-30] MEDS: Enoxaparin Sodium 30 MG/0.3 ML SYRINGE SC SCH (08:24)
[2017-10-30] MEDS: cefTRIAXone\\ROCEPHIN 2 GM in Sodium Chloride 0.9% 100 ML IVPB SCH (08:24)
[2017-10-30] MEDS: Polyethylene Glycol 3350 17 GM Packet PO SCH (08:42)
[2017-10-30] MEDS: Nystatin Powder 15 GM BOT TOP SCH (08:43)
[2017-10-30] MEDS: Meloxicam 15 MG TAB PO SCH (12:04)
[2017-10-30] MEDS: Fluconazole 100 MG TAB PO SCH (14:06)
[2017-10-30 17:50] VITALS: BP 176/87
--- NOTE | 2017-10-30 19:01 | PRG ---
DATE OF SERVICE: 10/30/2017 SUBJECTIVE: The patient had a long discussion with Dr. Castaneda and she is not yet sure if she wants t o have a procedure done or not. She denies any shortness of breath or vomiting. No abdominal pain. PHYSICAL EXAMINATION: VITAL SIGNS: Slight tachycardia. She is afebrile and BP 170/87. Awake, alert, oriented, pleasant, in no distress. LUNGS: Clear. HEART: S1 and S2 regular rate. ABDOMEN: Soft. Not distended or tender. The patient is voiding spontaneously. Has a peripheral IV access. LABORATORY DATA: White cell count 8.9, hemoglobin 9.4, platelets 193, creatinine 0.5. Microbiology with Klebsiella pneumoniae in 2 sets of blood cultures, urias susceptible phenotype. ASSESSMENT AND DISCUSSION: Protracted rheumatoid arthritis, severe ankylosis, recurrent nephrolithia sis with staghorn calculi bilaterally, prior laser lithotripsy with recurrence, multiple stenting pro cedures, recurrent urinary tract infections, now with invasive urinary tract infection with Klebsiell a pneumoniae bacteremia. She also has an Escherichia coli, which has a more resistant phenotype, but appears to be limited to the bladder. At this point, we would advise switching her to oral ciproflo xacin for 4 weeks total duration of therapy. She will be at risk for further episodes of the same pr oblem going forward unless she decides in favor of a more aggressive course of action with repeat att empts at removal of all the stone burden in her right and left kidneys. She is not sure what she wan ts to do at this point in time.
--- NOTE | 2017-10-31 00:51 | DIS ---
DATE OF ADMISSION: 10/24/2017 DATE OF DISCHARGE: 10/30/2017 DISCHARGE DISPOSITION: Back to [facility]. PRIMARY CARE PHYSICIAN: Maikol Maya M.D. DISCHARGE DIAGNOSES: 1. Urinary tract infection with Escherichia coli. 2. Klebsiella bacteremia. 3. Severe rheumatoid arthritis. 4. Hypertension. 5. Sepsis. 6. Urinary yeast infection. 7. Abnormal liver function tests probably secondary to sepsis. 8. Moderate protein calorie malnutrition. 9. Chronic anemia. 10. History of staghorn renal calculus, bilateral and chronic in nature. INHOUSE CONSULTATIONS: 1. Urology, Dr. Yusuf Castaneda. 2. Infectious Disease, Dr. Martinez. PROCEDURES DONE IN THE HOSPITAL: 1. Abdominal ultrasound, which shows fatty infiltration of the liver and status post cholecystectomy , a nonobstructing left renal calculi. 2. Bladder ultrasound, which shows multiple echogenic foci in the bladder, demonstrating shadows, fi ndings suspicious for calculi. 3. CT scan of the abdomen and pelvis without contrast, which shows bilateral nephrolithiasis with st aghorn renal calculi bilaterally, more prominent on the left and left ureteral stent in place which i s calcified with urinary bladder calculi also seen, mild left hydronephrosis which is stable from abdon or study. 4. Chest x-ray shows cardiomegaly with chronic lung changes. DISCHARGE MEDICATIONS: Ciprofloxacin 500 mg p.o. b.i.d. for one month. Resume home medications as b elow: Norvasc 5 mg daily, prednisone 5 mg daily, omeprazole 20 mg daily, Meloxicam 15 mg daily, meto prolol tartrate 25 mg p.o. b.i.d., levothyroxine 50 mcg daily, Xanax 0.25 mg p.o. daily, Florastor 25 0 mg daily, MiraLax as needed, nystatin topically b.i.d., Diflucan 100 mg p.o. daily for 3 more days, and multiple p.r.n. medications. HISTORY OF PRESENTING ILLNESS: Ms. Lea is a pleasant 82-year-old female with known history of staghorn calculi and severe rheumatoid arthritis who is a resident of [facility], was transferred here for possibility of sepsis. She came with complaints of sudden onset of rigors, chills, nausea, vomiting, and fever with mild shortness of breath. Upon presentation, phillip kauffman was tachycardic, febrile and hypotensive and her routine blood work showed leukocytosis with left s hift and bandemia as well as abnormal LFTs. Her UA was suggestive of UTI. She was admitted to medic al floor for possible sepsis and urinary tract infection. Urology and Infectious Disease was consult ed and she was started on empiric IV antibiotics. Please see admission history and physical for furt her details. HOSPITAL COURSE: The patient had improvement in her symptoms with IV antibiotics. Urine cultures an d blood cultures were sent. Urine culture showed E. coli, which was resistant to ciprofloxacin. Blo od cultures were 2/2 positive for Klebsiella pneumoniae, which was pansensitive. Urology was consulted because of her history of recurrent urinary tract infection and staghorn calcul i. Dr. Castaneda saw the patient and recommended that she sees Dr. Verma. Unfortunately, this did no t happen and meanwhile when I discussed the possibility for possible surgical correction of her stagh orn calculi, the patient was quite undecided. At this time, she does not want any surgical procedure s and would rather follow up with Dr. Verma in the Urology clinic as an outpatient. By the time of discharge, the patient is back to her baseline and her symptoms have resolved. I disc ussed the final antibiotic choice with Dr. Martienz from Infectious Disease. At this time, his recommen dations are to start ciprofloxacin for 1 month to cover for the Klebsiella. The urinary findings cou ld not be corrected until she gets her staghorn calculus treated. She needs to follow up with ID and Urology in the outpatient setting. This was discussed with the patient who verbalized understanding . She was seen and examined prior to discharge. PHYSICAL EXAMINATION: VITAL SIGNS: Temperature 98.7, pulse of 117, respirations 16, saturating 93% on room air, blood pres sure 162/84. No acute distress, awake, alert, oriented x3. CHEST: Clear to auscultation without any wheezing, rales or rhonchi. CARDIOVASCULAR: Rate and rhythm is regular without any murmur, rubs or gallops. LABORATORY DATA: CBC shows WBC is 8.9, which was 23.8. Serum chemistries unremarkable. Liver enzymes have improved. AST 59, which was 153; ALT 112, which was 192 and alkaline phosphatase is normal at 146. Lipase-amylase is normal. At this time, the patient is discharged back to [facility]. Home healt h has been arranged for her for OT, PT and detention. She needs to keep all of her followup ap pointments for complete treatment of her recurrent urinary tract infections. Total time spent 32 minutes.
== END 2017-10-30 18:46 | DRG 871 ==
LOC: ERS 03:29 → OBSVTOIN 05:34 → T4-A 05:34
PROVIDERS: ADMIT Family Medicine; ATTEND Family Medicine
DX: A41.59 Other Gram-negative sepsis (principal); R53.2 Functional quadriplegia; N39.0 Urinary tract infection, site not specified; E44.0 Moderate protein-calorie malnutrition; Z68.1 Body mass index [BMI] 19.9 or less, adult; R65.20 Severe sepsis without septic shock; Z66 Do not resuscitate; R94.5 Abnormal results of liver function studies; I10 Essential (primary) hypertension; M06.9 Rheumatoid arthritis, unspecified; N20.0 Calculus of kidney; R09.02 Hypoxemia; E03.9 Hypothyroidism, unspecified; Z85.820 Personal history of malignant melanoma of skin; F41.9 Anxiety disorder, unspecified; E86.0 Dehydration; R74.0 Nonspecific elevation of levels of transaminase and lactic acid dehydrogenase [LDH]; M21.90 Unspecified acquired deformity of unspecified limb; Z87.442 Personal history of urinary calculi; D63.8 Anemia in other chronic diseases classified elsewhere; F32.9 Major depressive disorder, single episode, unspecified; K59.09 Other constipation; K21.9 Gastro-esophageal reflux disease without esophagitis; M24.60 Ankylosis, unspecified joint; B96.20 Unspecified Escherichia coli [E. coli] as the cause of diseases classified elsewhere; B96.1 Klebsiella pneumoniae [K. pneumoniae] as the cause of diseases classified elsewhere
CPT/HCPCS: 36415; 51701; 71045; 74176; 76700; 76856; 80048; 80053; 81003; 81015; 82150; 83605; 83690; 83735; 83880; 85025; 85379; 87040; 87077; 87086; 87149; 87186; 93005; 96361; 96365; A4216; A4353; G8978-GP-CM; G8979-GP-CM; G8980-GP-CM; G8987-GO-CM; G8988-GO-CL; J0696; J1650; J2405; J2543; J3480; J7050